=== PATIENT | male | born 1925 | race Caucasian/White ===

== ENCOUNTER 2016-12-15 11:49 | Inpatient (IN) | payer MEDICARE, MEDICAID ==
[2016-12-15 12:39] LABS: Bilirubin Negative (Negative); Blood, Urine Large (Negative); Glucose, Urine (Dipstick) Negative (Negative); Ketone, Urine Trace mg/dL (Negative); Protein, Urine (Dipstick) > or equal to 300 mg/dL (Neg-Trace)
[2016-12-15 12:40] LABS: Nitrite Negative (Negative)
[2016-12-15 12:58] LABS: Bacteria/HPF 4+ HPF (None Seen); Hyaline Casts/LPF NONE SEEN LPF (0-3 Hyaline); Yeast-All Forms 1+ HPF (None Seen)
[2016-12-15] MEDS ORDERED: Labetalol HCl 100 MG/20 ML VIAL ONE (13:06)
[2016-12-15 13:09] LABS: #Lymphocytes 0.9 thou/uL (1.20-3.40); #Monocytes 0.4 thou/uL (0.11-0.59); #Neutrophils 5.2 thou/uL (1.40-6.50); %Basophils 0.2 % (0.0-1.0); %Eosinophils 0.6 % (0.0-10.0); %Lymphocytes 13.3 % (21.0-51.0); %Monocytes 5.6 % (0.0-10.0); Hematocrit 34.3 % (42.0-52.0); Mean Platelet Volume 7.8 fL (7.4-10.4); Red Blood Cell (RBC) Count 3.42 mill/uL (4.70-6.10); White Blood Cell (WBC) Count 6.5 thou/uL (4.8-10.8)
[2016-12-15 13:17] LABS: PTT 40.5 SEC (22.9-36.1); Prothrombin Time 18.1 SEC (12.0-14.7)
[2016-12-15 13:33] LABS: ALT (SGPT) 11 U/L (8-55); AST (SGOT) 19 U/L (5-34); Alkaline Phosphatase 101 U/L (40-150); Anion Gap 13 mmol/L (10-20); BUN (Urea Nitrogen) 22 mg/dL (8.4-25.7); Bilirubin, Total 0.9 mg/dL (0.2-1.2); CK (CPK) 23 U/L (30-200); Calc. Creatinine Clearance 0 mL/min (70-130); Calcium 8.5 mg/dL (7.8-10.44); Carbon Dioxide 31 mmol/L (23-31); Chloride 104 mmol/L (98-107); Estimated GFR-MDRD 87; Protein, Total 6.8 g/dL (5.8-8.1)
[2016-12-15 13:36] LABS: Troponin I 0.021 ng/mL (< 0.028)
--- NOTE | 2016-12-15 14:29 | CT ---
CT BRAIN HISTORY: An 89-year-old with history of left-sided weakness. [id number] CT images of the brain obtained. FINDINGS: CT images demonstrate cortical atrophy. No evidence of acute intracranial masses, hemorrhages, stro kes, or contusions seen. IMPRESSION: Cortical atrophy. Otherwise unremarkable CT brain. POS: KEILA
--- NOTE | 2016-12-15 14:46 | RAD ---
PORTABLE AP CHEST X-RAY 12/15/2016 HISTORY: Left-sided facial droop and left-sided weakness. The patient on Eliquis. Chest pain. COMPARISON: 06/18/2008. FINDINGS: A dual-lead left subclavian cardiac pacemaking device is noted in place. There is a moderately larg e right pleural effusion and associated atelectasis. There are increased interstitial densities at the left lung base which could be related to atelectasis, although infectious process is a possibili ty. Right cardiac border is obscured. Vascular calcifications seen at the thoracic aorta. No othe r interval change. IMPRESSION: 1. Moderately large right pleural effusion and passive atelectasis. 2. Increased interstitial densities left lung base which may be related to either atelectasis or dev eloping area of pneumonitis. Follow-up chest x-ray is recommended. POS: ELISABETH
[2016-12-15] MEDS ORDERED: Furosemide 40 MG/4 ML VIAL ONE (14:53)
[2016-12-15] MEDS ORDERED: Potassium Chloride 20 MEQ TAB ONE ×2 (14:53→14:54)
[2016-12-15] MEDS ORDERED: Potassium Chloride 20 MEQ/100 ML PREMIX BAG ONE (14:53)
[2016-12-15] MEDS ORDERED: Aspirin 325 MG TAB ONE (14:53)
[2016-12-15 16:28] LABS: Troponin I 0.019 ng/mL (< 0.028)
--- NOTE | 2016-12-15 16:45 | HP ---
PRIMARY CARE PHYSICIAN: Ian Howard M.D. in [place]. REASON FOR ADMISSION: CVA, CHF, UTI, and encephalopathy. HISTORY OF PRESENT ILLNESS: An 89-year-old male, who has multiple medical problems including atrial fibrillation with sick sinus syndrome with pacemaker on chronic anticoagulation therapy, who lives at [facility]. Last Saturday, patient required an emergency room visit because he was having hematuria. He was given antibiotic therapy with levofloxacin; and after that, the patient w as not doing well. He was altered and confused. He was not up to his baseline. As per patient's d aughter, patient is pretty much active and more coherent, but for the last two weeks, he is confused . This morning, the patient and staff noticed facial droop and left-sided weakness and that is why they sent him to the emergency room again today for further evaluation. The patient's daughter reports that last week he was having increasing cough and increasing shortnes s of breath. She also noticed edema over his ankle. The patient's daughter also noticed that for t he last one week he is declining. He is not sure about fever, but at the skilled nursing, he did not h ave any fever, but for the last 2 days, the patient's temperature was dropping at skilled nursing and h e was also having cough, productive of sputum. Today in the emergency room, patient had CT brain which is negative for any acute intracranial proce ss. It showed cortical atrophy and chest x-ray showed moderate to large right pleural effusion with atelectasis and increased interstitial lung changes in left lung base which was worrisome for pneum onia. The patient's urinalysis was also consistent with urinary tract infection. His BNP was eleva margot and his potassium was low. At this point, the patient is not able to provide a more detailed history and patient's daughter onl y able to provide this much history; because, he does not have any more detail. We spoke with [facility] and the history obtained from them as well. REVIEW OF SYSTEMS: Please see my HPI for pertinent positives and negatives. All other review of sy stems reviewed and negative except as mentioned in the HPI. Review of systems is limited because of patient's current level of mental status. Constitutional: Weight loss or gain, ability to conduct usual activities. Skin: Rash, itching. Eyes: Double vision, pain. ENT/Mouth: Nose bleeding, neck stiffness, pain, tenderness. Cardiovascular: Palpitations, dyspnea on exertion, orthopnea. Respiratory: Shortness of breath, wheezing, cough, hemoptysis, fever or night sweats. Gastrointestinal: Poor appetite, abdominal pain, heartburn, nausea, vomiting, constipation, or diarrhea. Genitourinary: Urgency, frequency, dysuria, nocturia. Musculoskeletal: Pain, swelling. Neurologic/Psychiatric: Anxiety, depression. Allergy/Immunologic: Skin rash, bleeding tendency. PAST MEDICAL HISTORY: History of atrial fibrillation and required pacemaker, chronic anticoagulatio n with Eliquis, Alzheimer's dementia, history of CVA, hypothyroidism, hypertension. PAST SURGICAL HISTORY: Colon surgery x2, suprapubic catheter, neck surgery, and permanent pacemaker placement. PAST PSYCHIATRIC HISTORY: Anxiety and depression. SOCIAL HISTORY: Patient lives at skilled nursing. No history of tobacco, alcohol or illicit drug abus e. FAMILY HISTORY: No strong family history of premature coronary artery disease, stroke or cancer. ALLERGIES: No known drug allergies. CURRENT HOME MEDICATIONS: Eliquis 2.5 mg twice daily, gabapentin 300 mg p.o. at bedtime, Remeron 15 mg p.o. daily. EMERGENCY ROOM COURSE: Patient is getting potassium chloride 20 mEq IV, potassium chloride 40 mEq p .o. one time ordered, Lasix 40 mg ordered, aspirin 325 mg ordered and labetalol 20 mg IV push given. FAMILY HISTORY: No strong family history of premature coronary artery disease, stroke or cancer. PHYSICAL EXAMINATION: VITAL SIGNS: On arrival, blood pressure 184/120, pulse 73, respiratory rate 19, temperature 97.8, s aturation 95% on room air, weight 90.7 kilograms. GENERAL: Patient is week afebrile, nontoxic. HEAD: Normocephalic, atraumatic. EYES: Pupils round, reactive to light. Extraocular muscles intact. ENT: Oropharynx within normal limits. Moist mucous membranes. No oral lesions. No pharyngeal bella thema. No exudate. NECK: Supple. Range of motion is normal. No meningeal signs of irritation. No JVD. No thyromega ly. No carotid bruits. LUNGS: Bibasilar rales noted. Air entry reduced on the right side. CARDIAC: S1, S2 appears irregular. No murmur. No gallop. No rub. ABDOMEN: Soft, bowel sounds present, nontender, nondistended. No organomegaly, no mass. Suprapubi c catheter in place. EXTREMITIES: Trace bilateral lower extremity edema more around ankles and feet. Good distal pulsat ion. Upper extremity passive movements of all joints are normal. SKIN: No skin rash. PSYCHIATRIC: Normal affect. HEMATOLOGICAL SYSTEM: No lymphadenopathy. NEUROLOGIC: The patient is currently alert, awake, arousable, follows commands. Speech normal; le ft-sided mild facial droop noted. The patient does have mild left-sided weakness, but per patient's family member that is chronic from previous stroke. Plantar bilateral flexor. Reflexes bilaterall y symmetrical. SIGNIFICANT LABS AND IMAGINGS: EKG showing atrial fibrillation with controlled ventricular response . CT brain showing cortical atrophy, no acute intracranial process. Chest x-ray based on my review , moderate to large right pleural effusion with passive atelectasis, left base infiltration. CBC: WBC 6.5, hemoglobin 10.7, MCV 100, platelets 175,000 INR 1.5. BMP: Sodium 145, potassium 2.9, chl oride 104, carbon dioxide 31, BUN 22, creatinine 0.83, glucose 93, calcium 8.5. LFT: AST 19, ALT 11, alkaline phosphatase 101, albumin 2.8. BNP 475.9, CK-MB 2.1, troponin I 0.02 1. Urinalysis suggestive of UTI, proteinuria, hematuria. ASSESSMENT AND PLAN: 1. Acute cerebrovascular accident, suspected. This patient was found with a more left-sided weakne ss and left-sided facial droop. At this point, CT brain is not showing any acute process. The derek ent is not able to get MRI because of his permanent pacemaker. We will obtain carotid ultrasound an d echocardiography as a part of stroke workup. We will consult PT, OT and speech therapy while in h ospital. We will continue with aspirin 81 mg p.o. daily. Patient is already on chronic anticoagula tion therapy with Eliquis 2.5 mg p.o. twice daily, which we will continue while in hospital. 2. Congestive heart failure likely acute on chronic diastolic heart failure. We will obtain echoca rdiography. We will treat with Lasix 20 mg IV b.i.d. We will monitor daily weight, input and outpu t chart. 3. Moderate to large right pleural effusion likely due to problem #2 secondary to acute on chronic diastolic heart failure. Patient will need diuresis and will repeat chest x-ray before discharge. 4. Left lower lobe skilled nursing acquired pneumonia. This patient was on antibiotic therapy with Le vaquin, which he did not tolerate it well. At this point, we will continue with cefepime 2 g q.12 h ourly along with vancomycin and we will repeat follow up chest x-ray after a couple of days, DuoNeb therapy q. 6 hourly p.r.n., Mucinex 600 mg twice daily. 5. Urinary tract infection. Patient's has suprapubic catheter and his urinalysis will be abnormal all the time. Doubt this patient has any real invasive urinary tract infection, but needs to be exc luded. At this point, the patient will be kept on cefepime and vancomycin and will follow up on uri ne culture as well. 6. Macrocytic anemia, will consider adding folic acid, vitamin B12 on his regimen. 7. Atrial fibrillation with controlled ventricular response with pacemaker, on chronic anticoagulat ion therapy with Eliquis 2.5 mg p.o. b.i.d., which we will continue while in hospital. 8. Hypokalemia. The patient has received potassium supplementation in the emergency room. We will repeat BMP tomorrow. We will also check magnesium to rule out any hypomagnesemia. 9. Encephalopathy likely due to multiple factorial etiologies including infection, CVA. We will mo nitor on the stroke floor. 10. Alzheimer's dementia. Patient will need supportive care. 11. Obstructive uropathy secondary to benign enlargement of prostate with suprapubic catheter in pl [place]. 12. Anxiety and depression. We will continue Remeron 15 mg p.o. at bedtime. 13. Deep venous thrombosis prophylaxis. No need of Lovenox because patient is already on Eliquis t herapy. 4. Gastrointestinal prophylaxis., Protonix 40 mg p.o. daily. CODE STATUS: I spoke with the patient's daughter who is present at bedside in the emergency room an d confirmed his DNR status at skilled nursing as well as while in hospital. They do not want any kind of resuscitation to be done in case of cardiopulmonary arrest. We are expecting patient's stay in hospital more than 2 midnights. Plan of care discussed with the patient and family member at bedside in the emergency room.
[2016-12-15] MEDS ORDERED: Mag-Al 1200 mg/1200 mg/30 ML UDCUP PO PRN (18:03)
[2016-12-15] MEDS ORDERED: Ondansetron HCl/PF 4 MG/2 ML Vial IVP PRN (18:03)
[2016-12-15] MEDS ORDERED: Diabetic Tussin 200 MG/10 ML UDCUP PO PRN (18:03)
[2016-12-15] MEDS ORDERED: Eucerin (Mineral Oil/Petrolatum,White) 30 gm Jar TOP PRN (18:03)
[2016-12-15] MEDS ORDERED: Sodium Chloride 0.65% Nasal 44 ML BOT EA NARE PRN (18:03)
[2016-12-15] MEDS ORDERED: Loperamide HCl 2 MG CAP PO PRN (18:03)
[2016-12-15] MEDS ORDERED: Artificial Tears 18 DROP/0.9 ML EA EYE PRN (18:03)
[2016-12-15] MEDS ORDERED: Loratadine 10 MG TAB PO PRN (18:03)
[2016-12-15] MEDS ORDERED: Acetaminophen 325 MG TAB PO PRN (18:03)
[2016-12-15] MEDS ORDERED: Ondansetron ODT 4 MG TAB PO PRN (18:03)
[2016-12-15] MEDS ORDERED: Senokot 8.6 MG TAB PO PRN (18:03)
[2016-12-15] MEDS ORDERED: Milk Of Magnesia 30 ML UDCUP PO PRN (18:03)
[2016-12-15] MEDS ORDERED: Nitroglycerin 0.4 MG TAB (25 Tab Bottle) SL PRN (18:03)
[2016-12-15 18:56] LABS: Troponin I 0.026 ng/mL (< 0.028)
[2016-12-15] MEDS: Apixaban 5 MG TAB PO SCH (20:32)
[2016-12-15] MEDS: Cefepime 2 GM in Sodium Chloride 0.9% 100 ML IVPB SCH (20:32)
[2016-12-15] MEDS: guaiFENesin ER 600 MG TAB PO SCH (20:33)
[2016-12-15] MEDS: Gabapentin 300 MG CAP PO SCH (20:33)
[2016-12-15] MEDS: Atorvastatin Calcium 10 MG TAB PO SCH (20:33)
[2016-12-15] MEDS: Mirtazapine 15 MG TAB PO SCH (20:33)
[2016-12-15] MEDS: Carvedilol 6.25 MG TAB PO SCH (20:33)
--- NOTE | 2016-12-15 20:48 | ULT ---
CAROTID DUPLEX ULTRASOUND: 12/15/16 INDICATION: CVA. FINDINGS: There is stable atherosclerotic plaque involving the right ICA and carotid bulb similar to a compari son dated 04/06/13. Mild atherosclerotic plaque involving the distal left common carotid and left int ernal carotid artery is again noted. Peak systolic velocity in the right CCA was 72.8 cm/s and left CCA was 52.0 cm. Peak systolic velocity in the right ICA was 67.6 cm/s and left was 51.9 cm/s. The right IC/CC ratio is 0.79 and left is 1.0. Antegrade flow is seen to both vertebral arteries. IMPRESSION: No hemodynamically significant stenosis. POS: KEILA
[2016-12-15 21:47] LABS: Troponin I 0.016 ng/mL (< 0.028)
[2016-12-15] MEDS: Vancomycin HCl 1 GM in Premix Bag 1 BAG IVPB SCH (22:30)
[2016-12-16] MEDS: Furosemide 20 MG/2 ML VIAL SLOW IVP SCH ×2 (05:48→14:40)
[2016-12-16 05:52] LABS: #Lymphocytes 0.7 thou/uL (1.20-3.40); #Monocytes 0.5 thou/uL (0.11-0.59); #Neutrophils 5.2 thou/uL (1.40-6.50); %Basophils 0.3 % (0.0-1.0); %Eosinophils 0.8 % (0.0-10.0); %Lymphocytes 11.2 % (21.0-51.0); %Monocytes 7.9 % (0.0-10.0); Hematocrit 33.2 % (42.0-52.0); Mean Platelet Volume 7.9 fL (7.4-10.4); Red Blood Cell (RBC) Count 3.31 mill/uL (4.70-6.10); White Blood Cell (WBC) Count 6.5 thou/uL (4.8-10.8)
[2016-12-16 06:04] LABS: ALT (SGPT) 11 U/L (8-55); AST (SGOT) 17 U/L (5-34); Alkaline Phosphatase 95 U/L (40-150); Anion Gap 11 mmol/L (10-20); BUN (Urea Nitrogen) 22 mg/dL (8.4-25.7); Bilirubin, Total 0.8 mg/dL (0.2-1.2); Calc. Creatinine Clearance 62 mL/min (70-130); Calcium 8.4 mg/dL (7.8-10.44); Carbon Dioxide 34 mmol/L (23-31); Chloride 103 mmol/L (98-107); Cholesterol 116 mg/dl (< 200 Desired); Estimated GFR-MDRD 75; Globulin 3.9 g/dL (2.4-3.5); LDL Cholesterol, Calculated 73 mg/dL; Magnesium 1.8 mg/dL (1.6-2.6); Protein, Total 6.6 g/dL (5.8-8.1); Uric Acid 4.9 mg/dL (3.5-7.2)
[2016-12-16] MEDS: Cefepime 2 GM in Sodium Chloride 0.9% 100 ML IVPB SCH ×2 (08:11→19:56)
[2016-12-16] MEDS: Saccharomyces boulardii 250 MG CAP PO SCH (08:18)
[2016-12-16] MEDS: Apixaban 5 MG TAB PO SCH ×2 (08:18→20:03)
[2016-12-16] MEDS: Carvedilol 6.25 MG TAB PO SCH ×2 (08:18→20:04)
[2016-12-16] MEDS: Cyanocobalamin (Vitamin B-12) 1,000 MCG TAB PO SCH (08:18)
[2016-12-16] MEDS: Aspirin 81 mg Enteric Coated Tablet PO SCH (08:18)
[2016-12-16] MEDS: Folic Acid 1 MG TAB PO SCH (08:18)
[2016-12-16] MEDS: guaiFENesin ER 600 MG TAB PO SCH ×2 (08:19→20:04)
[2016-12-16] MEDS: Lisinopril 5 MG TAB PO SCH (08:19)
--- NOTE | 2016-12-16 09:38 | PDOC.PN ---
- Subjective Encounter Start Date: 12/16/16 Encounter Start Time: 07:20 Pt seen for suspected CVA. Speaking, but speech incoherent. Unable to complete ROS. - Objective Resuscitation Status: Resuscitation Status DNR:Do Not Resuscitate MAR Reviewed: Yes Vital Signs & Weight: Vital Signs (12 hours) Temp Pulse Resp BP Pulse Ox 12/16/16 08:19 58 L 12/16/16 08:00 98.2 F 61 16 200/101 H 97 12/16/16 04:00 97.5 F L 58 L 20 161/101 H 93 L 12/15/16 23:15 97.4 F L 63 18 179/101 H 94 L 12/15/16 22:34 97 Weight Weight 182 lb 14.4 oz I&O: 12/15/16 12/16/16 12/17/16 06:59 06:59 06:59 Intake Total 640 Output Total 1550 Balance -910 Result Diagrams: 12/16/16 05:16 12/16/16 05:16 Additional Labs: Accuchecks 12/15/16 20:36 POC Glucose 109 EKG Reviewed by me: Yes (tele: electronic V-paced rhythm) Phys Exam - Physical Examination Constitutional: NAD HEENT: moist MMs, oral pharynx no lesions Neck: supple Respiratory: no wheezing, no rales, no rhonchi, clear to auscultation bilateral Cardiovascular: RRR, no rub Gastrointestinal: soft, positive bowel sounds Musculoskeletal: pulses present Power 4+/5 LUE and LLE, 5/5 RUE and RLE Psychiatric: normal affect Deviation from normal: Unable to assess orientation to person, place or time Skin: no rash Dx/Plan (1) Idiopathic ischemic cerebrovascular accident (CVA) in adult Code(s): I63.9 - CEREBRAL INFARCTION, UNSPECIFIED Status: Suspected (2) MCC-acquired pneumonia Code(s): J18.9 - PNEUMONIA, UNSPECIFIED ORGANISM Status: Acute (3) Encephalopathy Code(s): G93.40 - ENCEPHALOPATHY, UNSPECIFIED Status: Acute (4) Chronic atrial fibrillation Code(s): I48.2 - CHRONIC ATRIAL FIBRILLATION Status: Chronic (5) Alzheimer's dementia Code(s): G30.9 - ALZHEIMER'S DISEASE, UNSPECIFIED Status: Chronic (6) Chronic diastolic (congestive) heart failure Code(s): I50.32 - CHRONIC DIASTOLIC (CONGESTIVE) HEART FAILURE Status: Chronic - Plan continue antibiotics, PT/OT * . Continue apixaban and statin. Aspirin has also been started. Continue IV cefepime, IV vancomycin. Interrogate pacemaker for ? arrhythmias. Await stroke workup. Review of Systems - Medications/Allergies Allergies/Adverse Reactions: Allergies Allergy/AdvReac Type Severity Reaction Status Date / Time allopurinol Allergy Intermediate Hives Verified 12/15/16 22:13 milk Allergy Verified 12/15/16 22:13 Medications: Current Medications Acetaminophen (Tylenol) 650 mg PO Q4H PRN PRN Reason: Headache/Fever or Pain Al Hydroxide/Mg Hydroxide (Maalox) 30 ml PO Q6H PRN PRN Reason: Heartburn or Indigestion Albuterol/Ipratropium (Duoneb) 3 ml NEB [id number] PRN PRN Reason: SOB &/or Wheezing Apixaban (Eliquis) 2.5 mg PO BID [facility] Last Admin: 12/16/16 08:18 Dose: 2.5 mg Artificial Tears (Tears Naturale) 0 drop EA EYE PRN PRN PRN Reason: Dry Eyes Aspirin (Ecotrin) 81 mg PO DAILY [facility] Last Admin: 12/16/16 08:18 Dose: 81 mg Atorvastatin Calcium (Lipitor) 10 mg PO HS [facility] Last Admin: 12/15/16 20:33 Dose: 10 mg Carvedilol (Coreg) 6.25 mg PO BID [facility] Last Admin: 12/16/16 08:18 Dose: 6.25 mg Cyanocobalamin (Vitamin B-12) 1,000 mcg PO DAILY [facility] Last Admin: 12/16/16 08:18 Dose: 1,000 mcg Folic Acid (Folvite) 1 mg PO DAILY [facility] Last Admin: 12/16/16 08:18 Dose: 1 mg Furosemide (Lasix) 20 mg SLOW IVP 0600,1400 [facility] Last Admin: 12/16/16 05:48 Dose: 20 mg Gabapentin (Neurontin) 300 mg PO HS [facility] Last Admin: 12/15/16 20:33 Dose: 300 mg Guaifenesin (Robitussin Sf) 200 mg PO Q4H PRN PRN Reason: Cough Guaifenesin (Mucinex) 600 mg PO Q12HR [facility] Last Admin: 12/16/16 08:19 Dose: 600 mg Hydralazine HCl (Apresoline) 10 mg SLOW IVP Q4H PRN PRN Reason: Systolic BP > 180 Cefepime HCl 2 gm/ Sodium (Chloride) 100 mls @ 200 mls/hr IVPB Q12HR [facility] Last Admin: 12/16/16 08:11 Dose: 100 mls Vancomycin HCl 1 gm/ Device 200 mls @ 200 mls/hr IVPB 1000,2200 [facility] Last Admin: 12/15/16 22:30 Dose: 200 mls Lisinopril (Zestril) 5 mg PO DAILY [facility] Last Admin: 12/16/16 08:19 Dose: 5 mg Loperamide HCl (Imodium) 2 mg PO PRN PRN PRN Reason: Diarrhea/Loose Stools Loratadine (Claritin) 10 mg PO DAILYPRN PRN PRN Reason: Sinus Symptoms Magnesium Hydroxide (Milk Of Magnesium) 30 ml PO DAILYPRN PRN PRN Reason: Constipation Mineral Oil/White Petrolatum (Eucerin Cream) 0 gm TOP BIDPRN PRN PRN Reason: Dry Skin Mirtazapine (Remeron) 15 mg PO [facility] Last Admin: 12/15/16 20:33 Dose: 15 mg Miscellaneous Medication (Pharmacy To Dose) 1 each IVPB PRN PRN PRN Reason: Pharmacy to dose Nitroglycerin (Nitrostat) 0.4 mg SL Q5MIN PRN PRN Reason: Chest Pain Ondansetron HCl (Zofran Odt) 4 mg PO Q6H PRN PRN Reason: Nausea/Vomiting Ondansetron HCl (Zofran) 4 mg IVP Q6H PRN PRN Reason: Nausea/Vomiting Saccharomyces Boulardii (Florastor) 250 mg PO DAILY [facility] Last Admin: 12/16/16 08:18 Dose: 250 mg Senna (Senokot) 2 tab PO HSPRN PRN PRN Reason: Constipation Sodium Chloride (Flush - Normal Saline) 10 ml IVF PRN PRN PRN Reason: Saline Flush Sodium Chloride (Comfrey Nasal [place] 0.65%) 0 ml EA NARE QIDPRN PRN PRN Reason: Nasal Congestion Sodium Chloride (Flush - Normal Saline) 10 ml IVF Q12HR [facility] Last Admin: 12/15/16 20:32 Dose: 10 ml
[2016-12-16] MEDS: Vancomycin HCl 1 GM in Premix Bag 1 BAG IVPB SCH ×2 (10:17→20:48)
[2016-12-16 12:49] LABS: BF Reference Range Comment Note:
[2016-12-16 14:02] LABS: BF Color Yellow; BF WBC/Nonhematics Ct. - Manua 85 /cumm
[2016-12-16 15:08] LABS: Number Cells Counted-Fluids 100
--- NOTE | 2016-12-16 15:32 | RAD ---
AP CHEST: History: Status post thoracentesis. Date: 12-16-16 Comparison: 12-15-16 FINDINGS: Cardiomegaly. A dual-lead intracardiac pacing device is seen. There is reduction in volume of the ri ght sided pleural effusion compatible with a recent thoracentesis. No evidence of post procedure pne umothorax seen. The left lung is well aerated. IMPRESSION: Status post right sided thoracentesis. POS: KEILA
[2016-12-16] MEDS ORDERED: Haloperidol Lactate 5 MG/ML VIAL IM SCH (16:45)
--- NOTE | 2016-12-16 17:12 | PDOC.EVN ---
Event Note - Event Note Event Note: Pt seen re; agitation. Agitated, trying to climb out of bed. VSS. S1, S2, RRR. Lungs CTA Started PRN Haldol.
[2016-12-16] MEDS ORDERED: Acetaminophen 325 MG TAB PO PRN (17:19)
[2016-12-16] MEDS ORDERED: Sterile Water 10 ML ONE ×2 (17:22→22:39)
[2016-12-16] MEDS: Ziprasidone 20 MG VIAL IM PRN ×2 (17:29→22:43)
--- NOTE | 2016-12-16 19:22 | CON ---
DATE OF CONSULTATION: 12/16/2016 REFERRING PHYSICIAN: Hospitalist Service IMPRESSION: Delirium secondary to pulmonary effusion and sleep deprivation. PLAN: 1. Seroquel 50 mg at bedtime. 2. Monitor clinical course. HISTORY OF PRESENT ILLNESS: Ms. 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 He has been a wheelchair-bound. He has been hospitalized on several occasions with urosepsis. His neal ter reports that over the last week, he has not been sleeping and getting more and more agitated a nd delirious. He was found to have pulmonary effusion and had to strain today. This is the first t maria victoria this has ever happened. He is followed by Cardiology and also has a pacemaker. He has had a CT scan of the brain since admission, which was unremarkable. His laboratory studies were unremarkabl e as well for any metabolic disturbance. Urinalysis is suspicious for ongoing infection, but he has not run any fever since admission. PAST MEDICAL HISTORY: As noted above. ALLERGIES: ALLOPURINOL and MILK. SOCIAL HISTORY: He is a correction resident. He does not smoke or drink. FAMILY HISTORY: Noncontributory. REVIEW OF SYSTEMS: The patient reports some mild chest pain. PHYSICAL EXAMINATION: GENERAL: He is a healthy appearing elderly gentleman, who is lying in bed and relatively quiet. VITAL SIGNS: Blood pressure 188/113, pulse 60, respirations 14, temperature 97.4. HEENT: Pupils are equal and reactive. Conjunctivae clear. Mucous membranes are bit dry. NECK: No lymphadenopathy noted. EXTREMITIES: No cyanosis noted. NEUROLOGIC: He would respond verbally and follow few simple commands, although he was not overly co operative. His speech is fluent and clear. His face appeared to be symmetric. Eye movements were intact. He had symmetric highway engineer strength. His tone was increased a bit in the legs. Plantar respons es were upgoing bilaterally. No abnormal movements were seen. LABORATORY STUDIES AND IMAGING: Reviewed. SUMMARY: This is an elderly man who has had a disruption of his sleep cycle over the last week with increasing delirium. Hopefully, this can be reversed with any psychotic. Do not see any other tox ic or metabolic factors. Urinary tract infection may be a contributing factor as well.
[2016-12-16] MEDS: Atorvastatin Calcium 10 MG TAB PO SCH (20:03)
[2016-12-16] MEDS: Gabapentin 300 MG CAP PO SCH (20:04)
[2016-12-16] MEDS: Mirtazapine 15 MG TAB PO SCH (20:04)
--- NOTE | 2016-12-16 20:15 | OP ---
PROCEDURE: Thoracentesis. INDICATIONS: Pleural effusion. PROCEDURE IN DETAIL: After informed consent with the daughter, the patient was sitting upright in b ed with the help of 2 nurses, 1% Xylocaine was infiltrated into the right ninth intercostal space in the midscapular line and the pleural cavity was entered, and about 20 mL of relatively clear fluid was removed, which appeared to be transudate. Thereafter, an 8-[place] catheter was inserted and a t otal of 1800 mL was removed without difficulty. Fluid was sent for appropriate studies including cy tology and culture. Patient tolerated the procedure well.
--- NOTE | 2016-12-16 20:30 | CON ---
DATE OF CONSULTATION: 12/16/2016 SUBJECTIVE: Michael Mejias is an 89-year-old gentleman who, according to his daughter who is at the bedside, went to the [place] ER about a couple of weeks ago with a problem with the suprapubic darrel ter. They apparently changed the catheter, but nothing additionally was done at that time. Now noticed that he was having some facial weakness and drooping for which he was taken again to [facility] and eventually landed to [facility]. Mr. Mejias denies any chest pain, shortness of breath, coughing or wheezing. PAST MEDICAL HISTORY: Coronary artery disease, previous NH, pacemaker in 1999, previous atrial fibr illation, on long-term Coumadin. PAST SURGICAL HISTORY: Include multiple cholecystectomy, pacemaker, lap for colon resection. MEDICATIONS: His list of medicine from the long-term has included Eliquis 2.5, melatonin, mirtaz apine 15, Synthroid 125, , Zoloft 50, pravastatin. ALLERGIES: ALLOPURINOL. REVIEW OF SYSTEMS: Otherwise unremarkable. PHYSICAL EXAMINATION: GENERAL: Elderly gentleman who appears to be in mild distress. VITAL SIGNS: Pulse 80, blood pressure 130/80, respirations 18. CHEST: Reveals decreased breath sounds in entire right lung. Left lung unremarkable. CARDIAC: Normal S1, S2. No gallops. ABDOMEN: Soft, no masses. IMPRESSION: 1. Left-sided weakness. 2. Transient ischemic attack. Initial CT of the brain was negative. Chest x-ray shows massive ple ural effusion on the right side, which is presumably new according to his daughter. 3. History of congestive heart failure. 4. Atrial fibrillation. 5. Dementia. PLAN: A thoracentesis will be done for comfort measures. Otherwise, continue present antibiotics, deescalate once cultures are back.
[2016-12-16] MEDS ORDERED: Haloperidol Lactate 5 MG/ML VIAL IM PRN (22:30)
[2016-12-17] MEDS: Furosemide 20 MG/2 ML VIAL SLOW IVP SCH ×2 (05:53→13:34)
[2016-12-17 09:38] LABS: Vancomycin, Trough 20.7 ug/mL
[2016-12-17] MEDS: Lisinopril 5 MG TAB PO SCH (09:57)
[2016-12-17] MEDS: Folic Acid 1 MG TAB PO SCH (09:57)
[2016-12-17] MEDS: guaiFENesin ER 600 MG TAB PO SCH ×2 (09:57→20:43)
[2016-12-17] MEDS: Cyanocobalamin (Vitamin B-12) 1,000 MCG TAB PO SCH (09:57)
[2016-12-17] MEDS: Carvedilol 6.25 MG TAB PO SCH ×2 (09:57→20:43)
[2016-12-17] MEDS: Aspirin 81 mg Enteric Coated Tablet PO SCH (09:57)
[2016-12-17] MEDS: Apixaban 5 MG TAB PO SCH ×2 (09:57→20:42)
[2016-12-17] MEDS: Saccharomyces boulardii 250 MG CAP PO SCH (09:58)
--- NOTE | 2016-12-17 10:07 | PDOC.PN ---
- Subjective Encounter Start Date: 12/17/16 Encounter Start Time: 07:20 Pt seen for followup re: encephalopathy. Lethargic, unable to provide history or ROS. - Objective Resuscitation Status: Resuscitation Status DNR:Do Not Resuscitate MAR Reviewed: Yes Vital Signs & Weight: Vital Signs (12 hours) Temp Pulse Resp BP Pulse Ox 12/17/16 09:57 77 12/17/16 04:16 96.3 F L 77 16 160/78 H 94 L 12/17/16 03:29 95 12/16/16 23:59 96.1 F L 72 16 160/80 H 95 Weight Weight 166 lb 11.2 oz I&O: 12/16/16 12/17/16 12/18/16 06:59 06:59 06:59 Intake Total 640 450 Output Total 1550 5150 Balance -910 -4700 Result Diagrams: 12/16/16 05:16 12/16/16 05:16 EKG Reviewed by me: Yes (Tele: electronic V-paced rhythm) Dx/Plan (1) Encephalopathy Code(s): G93.40 - ENCEPHALOPATHY, UNSPECIFIED Status: Acute (2) Infection due to ESBL-producing Klebsiella pneumoniae Code(s): A49.8 - OTHER BACTERIAL INFECTIONS OF UNSPECIFIED SITE; Z16.12 - EXTENDED SPECTRUM BETA LACTAMASE (ESBL) RESISTANCE Status: Acute Comment: UTI (3) custodial-acquired pneumonia Code(s): J18.9 - PNEUMONIA, UNSPECIFIED ORGANISM Status: Acute (4) Chronic atrial fibrillation Code(s): I48.2 - CHRONIC ATRIAL FIBRILLATION Status: Chronic (5) Alzheimer's dementia Code(s): G30.9 - ALZHEIMER'S DISEASE, UNSPECIFIED Status: Chronic (6) Chronic diastolic (congestive) heart failure Code(s): I50.32 - CHRONIC DIASTOLIC (CONGESTIVE) HEART FAILURE Status: Chronic - Plan continue antibiotics, DVT proph w/SCDs * . Discontinue cefepime, start meropenem (ESBL+ Klebsiella pneumoniae in urine cultures). Unsure re: urinary tract infection vs. catheter colonization, consult ID. Appreciate pulmonology input, s/p thoracentesis. Appreciate neurology service input re; delirium. Review of Systems - Medications/Allergies Allergies/Adverse Reactions: Allergies Allergy/AdvReac Type Severity Reaction Status Date / Time allopurinol Allergy Intermediate Hives Verified 12/15/16 22:13 milk Allergy Verified 12/15/16 22:13 Medications: Current Medications Acetaminophen (Tylenol) 650 mg PO Q4H PRN PRN Reason: Headache/Fever or Pain Al Hydroxide/Mg Hydroxide (Maalox) 30 ml PO Q6H PRN PRN Reason: Heartburn or Indigestion Albuterol/Ipratropium (Duoneb) 3 ml NEB [id number] PRN PRN Reason: SOB &/or Wheezing Apixaban (Eliquis) 2.5 mg PO BID [facility] Last Admin: 12/17/16 09:57 Dose: Not Given Artificial Tears (Tears Naturale) 0 drop EA EYE PRN PRN PRN Reason: Dry Eyes Aspirin (Ecotrin) 81 mg PO DAILY [facility] Last Admin: 12/17/16 09:57 Dose: Not Given Atorvastatin Calcium (Lipitor) 10 mg PO HS [facility] Last Admin: 12/16/16 20:03 Dose: Not Given Carvedilol (Coreg) 6.25 mg PO BID [facility] Last Admin: 12/17/16 09:57 Dose: Not Given Cyanocobalamin (Vitamin B-12) 1,000 mcg PO DAILY [facility] Last Admin: 12/17/16 09:57 Dose: Not Given Folic Acid (Folvite) 1 mg PO DAILY [facility] Last Admin: 12/17/16 09:57 Dose: Not Given Furosemide (Lasix) 20 mg SLOW IVP 0600,1400 [facility] Last Admin: 12/17/16 05:53 Dose: 20 mg Gabapentin (Neurontin) 300 mg PO HS [facility] Last Admin: 12/16/16 20:04 Dose: Not Given Guaifenesin (Robitussin Sf) 200 mg PO Q4H PRN PRN Reason: Cough Guaifenesin (Mucinex) 600 mg PO Q12HR [facility] Last Admin: 12/17/16 09:57 Dose: Not Given Haloperidol Lactate (Haldol) 2 mg IM Q6H PRN PRN Reason: . Hydralazine HCl (Apresoline) 10 mg SLOW IVP Q4H PRN PRN Reason: Systolic BP > 180 Last Admin: 12/16/16 20:42 Dose: 10 mg Vancomycin HCl 1 gm/ Device 200 mls @ 200 mls/hr IVPB 1000,2200 [facility] Last Admin: 12/16/16 20:48 Dose: 200 mls Meropenem 1 gm/ Sodium (Chloride) 100 mls @ 200 mls/hr IVPB Q8HR [facility] Lisinopril (Zestril) 5 mg PO DAILY [facility] Last Admin: 12/17/16 09:57 Dose: Not Given Loperamide HCl (Imodium) 2 mg PO PRN PRN PRN Reason: Diarrhea/Loose Stools Loratadine (Claritin) 10 mg PO DAILYPRN PRN PRN Reason: Sinus Symptoms Magnesium Hydroxide (Milk Of Magnesium) 30 ml PO DAILYPRN PRN PRN Reason: Constipation Mineral Oil/White Petrolatum (Eucerin Cream) 0 gm TOP BIDPRN PRN PRN Reason: Dry Skin Mirtazapine (Remeron) 15 mg PO [facility] Last Admin: 12/16/16 20:04 Dose: Not Given Miscellaneous Medication (Pharmacy To Dose) 1 each IVPB PRN PRN PRN Reason: Pharmacy to dose Nitroglycerin (Nitrostat) 0.4 mg SL Q5MIN PRN PRN Reason: Chest Pain Ondansetron HCl (Zofran Odt) 4 mg PO Q6H PRN PRN Reason: Nausea/Vomiting Ondansetron HCl (Zofran) 4 mg IVP Q6H PRN PRN Reason: Nausea/Vomiting Saccharomyces Boulardii (Florastor) 250 mg PO DAILY [facility] Last Admin: 12/17/16 09:58 Dose: Not Given Senna (Senokot) 2 tab PO HSPRN PRN PRN Reason: Constipation Sodium Chloride (Flush - Normal Saline) 10 ml IVF PRN PRN PRN Reason: Saline Flush Last Admin: 12/17/16 05:53 Dose: 10 ml Sodium Chloride ([place] Nasal [place] 0.65%) 0 ml EA NARE QIDPRN PRN PRN Reason: Nasal Congestion Sodium Chloride (Flush - Normal Saline) 10 ml IVF Q12HR [facility] Last Admin: 12/17/16 09:58 Dose: Not Given Ziprasidone (Geodon) 10 mg IM Q6H PRN PRN Reason: Agitation Last Admin: 12/16/16 22:43 Dose: 10 mg
--- NOTE | 2016-12-17 10:35 | PRG ---
DATE OF SERVICE: 12/17/2016 SUBJECTIVE: Mr. Mejias is poorly responsive, in terms of speaking, appears to be breathing okay. PHYSICAL EXAMINATION: VITAL SIGNS: Temperature 96.3, pulse 77, respirations 16, O2 sat 94%, blood pressure 160/78. HEENT: Unremarkable. NECK: No JVD. LUNGS: Diminished breath sounds at the right base compared to left. CARDIAC: S1 and S2 regular. ABDOMEN: Soft. EXTREMITIES: No edema. Pleural fluid was transudative in nature. LABORATORY DATA: Sodium 145, potassium 3.4, chloride 103, CO2 34, BUN 22, creatinine 0.9, glucose 1 09. White blood cell count 6.5, hematocrit 33.2, platelet count 172. ASSESSMENT: 1. Transudative pleural effusion, likely secondary to congestive heart failure. 2. Status post thoracentesis for pleural effusion. 3. Atrial fibrillation. 4. Dementia. PLAN: Speech people are seeing the patient this morning. He is continuing antibiotic therapy -- no t quite sure what the indication is for that. Goal should be palliative in nature in my opinion.
[2016-12-17] MEDS: Vancomycin HCl 1 GM in Premix Bag 1 BAG IVPB SCH ×2 (12:11→20:42)
[2016-12-17] MEDS: Ziprasidone 20 MG VIAL IM PRN (13:43)
[2016-12-17] MEDS ORDERED: Meropenem 1 GM in Sodium Chloride 0.9% 100 ML IVPB SCH (14:00)
--- NOTE | 2016-12-17 19:57 | CON ---
DATE OF CONSULTATION: 12/17/2016 REASON FOR CONSULTATION: Evaluate results of urine culture significance. HISTORY OF PRESENT ILLNESS: An 89-year-old who has a history of prior CVA/TIA, AFib, sick sinus syn drome with pacemaker, who was admitted with history of confusional state. This was associated with left-sided weakness. This also presented with evidence of some respiratory symptoms including tachy pnea and cough. The patient had a CT of brain, which did not show any acute intracranial process ex cept for cortical atrophy and a chest x-ray with moderate to large right pleural effusion and atelec tases. The patient had thoracentesis and the pleural fluid total protein was 2.5 and the serum albu min 2.8 and 2.7. The patient has been continued on Eliquis and gabapentin. He was given meropenem and vancomycin. Microbiology with negative blood cultures thus far. Pleural fluid culture negative as well. Klebsiella pneumonia in urine was ESBL phenotype. Follow up chest x-ray on 12/16 with a dual intracardiac pacing device, reduction in volume of the right-sided pleural effusion without pne umothorax. Currently, Mr. Mejias has his eyes closed; he does not interact with examiner. He has a patterned repetitive flexion movement of the upper extremities. No spontaneous movements identified in the lower extremities. There has been no reported diarrhea, no bleeding. PAST MEDICAL HISTORY: Atrial fibrillation, prior cerebrovascular accident, hypothyroidism, chronic anticoagulation with Eliquis and hypertension. PAST SURGICAL HISTORY: Partial colectomy, suprapubic catheter placement, neck surgery and permanent pacemaker. SOCIAL HISTORY: Lives in a snf. Unknown history of smoking. FAMILY HISTORY: Noncontributory. ALLERGIES: None. MEDICATION LIST: Currently Maalox, DuoNeb, Eliquis, Coreg, Lasix, Neurontin, Mucinex, Haldol, Zestr il and meropenem. PHYSICAL EXAMINATION: VITAL SIGNS: Patient has been afebrile through the hospital stay. Blood pressure 150/78, pulse 73, respirations 20 and O2 sat 98%. GENERAL: Appears in no distress, although he does not interact with examiner. SKIN: Findings as a stage II pressure area in the perianal region and gluteal region. Peripheral I V access, Hoyt catheter and a suprapubic catheter with normal appearing exit site. No lymphadenopa thy. HEENT: Ocular movements are conjugate. No nystagmus. The patient has no [place] teeth. NECK: Supple. LUNGS: With symmetric clear breath sounds. HEART: S1 and S2 with regular rate. ABDOMEN: Soft and distended. No bladder distention, organomegaly or ascites. EXTREMITIES: No joint inflammatory activity. Pulses are 1+ in dorsalis pedis. The lower extremiti es are pre-flaccid. No reflexes are elicited. NEUROLOGIC: Plantar responses are indifferent. LABORATORY AND X-RAY FINDINGS: Sodium is 145, potassium is 3.4 and creatinine is 0.95. Liver profi le normal. White cell count 6.5, hemoglobin 10.6 and platelets 172. Urinalysis with 11-20 wbc's, p leural fluid with 85 wbc's with 24% lymphocytes and 4% neutrophils. ASSESSMENT: Prior cerebrovascular accident with suprapubic catheter, cognitive dysfunction, worseni ng mental state, initial admission for change in mental status, no documented fever. Some interstit ial densities left lung base and the findings in the urine. DISCUSSION: The urine findings are most likely a colonization of the urinary tract. We would not r ecommend treating this finding at this point in time. The chest x-ray was concerning for possible a spiration pneumonia. The pleural effusion is exudative in character and I do not see any improvemen t in his mental status, may have had another cerebrovascular accident that is not disclosed by the C T. An MRI might be able to demonstrate that, so I would recommend discontinuation of meropenem and consider MRI to evaluate for subcortical posterior fossa cerebrovascular accident.
[2016-12-17] MEDS: Mirtazapine 15 MG TAB PO SCH (20:43)
[2016-12-17] MEDS: Gabapentin 300 MG CAP PO SCH (20:43)
[2016-12-17] MEDS: Atorvastatin Calcium 10 MG TAB PO SCH (20:43)
[2016-12-18] MEDS: Furosemide 20 MG/2 ML VIAL SLOW IVP SCH ×2 (05:34→14:18)
[2016-12-18 09:17] LABS: Fungus Smear Status Final report (.)
[2016-12-18 09:31] LABS: Vancomycin, Trough 24.6 ug/mL
[2016-12-18] MEDS: Vancomycin HCl 1 GM in Premix Bag 1 BAG IVPB SCH (09:46)
[2016-12-18] MEDS: Lisinopril 5 MG TAB PO SCH (09:52)
[2016-12-18] MEDS: Saccharomyces boulardii 250 MG CAP PO SCH (09:52)
[2016-12-18] MEDS: Cyanocobalamin (Vitamin B-12) 1,000 MCG TAB PO SCH (09:53)
[2016-12-18] MEDS: guaiFENesin ER 600 MG TAB PO SCH ×2 (09:53→22:11)
[2016-12-18] MEDS: Aspirin 81 mg Enteric Coated Tablet PO SCH (09:53)
[2016-12-18] MEDS: Folic Acid 1 MG TAB PO SCH (09:53)
[2016-12-18] MEDS: Carvedilol 6.25 MG TAB PO SCH ×2 (09:53→22:11)
[2016-12-18] MEDS: Apixaban 5 MG TAB PO SCH ×2 (09:53→22:10)
--- NOTE | 2016-12-18 16:29 | PDOC.PN ---
- Subjective Encounter Start Date: 12/18/16 Encounter Start Time: 08:20 Pt seen for followup re: encephalopathy. Keeping eyes tightly shut, not answering questions, grimacing. Unable to complete ROS. - Objective Resuscitation Status: Resuscitation Status DNR:Do Not Resuscitate MAR Reviewed: Yes Vital Signs & Weight: Vital Signs (12 hours) Temp Pulse Resp BP BP Pulse Ox 12/18/16 16:00 96.1 F L 94 18 183/86 H 93 L 12/18/16 12:00 96.1 F L 85 18 175/87 H 94 L 12/18/16 09:53 125/94 H 12/18/16 09:52 78 125/94 H 12/18/16 08:44 96.1 F L 85 18 95 12/18/16 08:00 96 F L 78 14 125/94 H 95 Weight Weight 164 lb I&O: 12/17/16 12/18/16 12/19/16 06:59 06:59 06:59 Intake Total 450 525 Output Total 5150 2450 175 Balance -4700 -1925 -175 Result Diagrams: 12/16/16 05:16 12/16/16 05:16 EKG Reviewed by me: Yes (Tele: electronic V-paced rhythm) Phys Exam - Physical Examination Keeping eyes tightly shut, grimacing Neck: supple Bibasal crackles Cardiovascular: RRR Gastrointestinal: soft, positive bowel sounds Neurological: moves all 4 limbs Deviation from normal: grimacing Dx/Plan (1) Encephalopathy Code(s): G93.40 - ENCEPHALOPATHY, UNSPECIFIED Status: Acute (2) Chronic atrial fibrillation Code(s): I48.2 - CHRONIC ATRIAL FIBRILLATION Status: Chronic (3) Alzheimer's dementia Code(s): G30.9 - ALZHEIMER'S DISEASE, UNSPECIFIED Status: Chronic (4) Chronic diastolic (congestive) heart failure Code(s): I50.32 - CHRONIC DIASTOLIC (CONGESTIVE) HEART FAILURE Status: Chronic (5) Infection due to ESBL-producing Klebsiella pneumoniae Code(s): A49.8 - OTHER BACTERIAL INFECTIONS OF UNSPECIFIED SITE; Z16.12 - EXTENDED SPECTRUM BETA LACTAMASE (ESBL) RESISTANCE Status: Ruled-out Comment : UTI (6) penitentiary-acquired pneumonia Code(s): J18.9 - PNEUMONIA, UNSPECIFIED ORGANISM Status: Suspected - Plan * . Meropenem stopped, pt still on vancomycin. Palliative care service consult re: goals of care. Prognosis guarded. Review of Systems - Medications/Allergies Allergies/Adverse Reactions: Allergies Allergy/AdvReac Type Severity Reaction Status Date / Time allopurinol Allergy Intermediate Hives Verified 12/15/16 22:13 milk Allergy Verified 12/15/16 22:13 Medications: Current Medications Acetaminophen (Tylenol) 650 mg PO Q4H PRN PRN Reason: Headache/Fever or Pain Al Hydroxide/Mg Hydroxide (Maalox) 30 ml PO Q6H PRN PRN Reason: Heartburn or Indigestion Albuterol/Ipratropium (Duoneb) 3 ml NEB [id number] PRN PRN Reason: SOB &/or Wheezing Apixaban (Eliquis) 2.5 mg PO BID [facility] Last Admin: 12/18/16 09:53 Dose: Not Given Artificial Tears (Tears Naturale) 0 drop EA EYE PRN PRN PRN Reason: Dry Eyes Aspirin (Ecotrin) 81 mg PO DAILY [facility] Last Admin: 12/18/16 09:53 Dose: Not Given Atorvastatin Calcium (Lipitor) 10 mg PO HS [facility] Last Admin: 12/17/16 20:43 Dose: Not Given Carvedilol (Coreg) 6.25 mg PO BID [facility] Last Admin: 12/18/16 09:53 Dose: Not Given Cyanocobalamin (Vitamin B-12) 1,000 mcg PO DAILY [facility] Last Admin: 12/18/16 09:53 Dose: Not Given Folic Acid (Folvite) 1 mg PO DAILY [facility] Last Admin: 12/18/16 09:53 Dose: Not Given Furosemide (Lasix) 20 mg SLOW IVP 0600,1400 [facility] Last Admin: 12/18/16 14:18 Dose: 20 mg Gabapentin (Neurontin) 300 mg PO HS [facility] Last Admin: 12/17/16 20:43 Dose: Not Given Guaifenesin (Robitussin Sf) 200 mg PO Q4H PRN PRN Reason: Cough Guaifenesin (Mucinex) 600 mg PO Q12HR [facility] Last Admin: 12/18/16 09:53 Dose: Not Given Haloperidol Lactate (Haldol) 2 mg IM Q6H PRN PRN Reason: . Hydralazine HCl (Apresoline) 10 mg SLOW IVP Q4H PRN PRN Reason: Systolic BP > 180 Last Admin: 12/16/16 20:42 Dose: 10 mg Vancomycin HCl 750 mg/ Sodium (Chloride) 250 mls @ 250 mls/hr IVPB 1000,2200 [facility] Lisinopril (Zestril) 5 mg PO DAILY [facility] Last Admin: 12/18/16 09:52 Dose: Not Given Loperamide HCl (Imodium) 2 mg PO PRN PRN PRN Reason: Diarrhea/Loose Stools Loratadine (Claritin) 10 mg PO DAILYPRN PRN PRN Reason: Sinus Symptoms Magnesium Hydroxide (Milk Of Magnesium) 30 ml PO DAILYPRN PRN PRN Reason: Constipation Mineral Oil/White Petrolatum (Eucerin Cream) 0 gm TOP BIDPRN PRN PRN Reason: Dry Skin Mirtazapine (Remeron) 15 mg PO [facility] Last Admin: 12/17/16 20:43 Dose: Not Given Miscellaneous Medication (Pharmacy To Dose) 1 each IVPB PRN PRN PRN Reason: Pharmacy to dose Nitroglycerin (Nitrostat) 0.4 mg SL Q5MIN PRN PRN Reason: Chest Pain Ondansetron HCl (Zofran Odt) 4 mg PO Q6H PRN PRN Reason: Nausea/Vomiting Ondansetron HCl (Zofran) 4 mg IVP Q6H PRN PRN Reason: Nausea/Vomiting Saccharomyces Boulardii (Florastor) 250 mg PO DAILY [facility] Last Admin: 12/18/16 09:52 Dose: Not Given Senna (Senokot) 2 tab PO HSPRN PRN PRN Reason: Constipation Sodium Chloride (Flush - Normal Saline) 10 ml IVF PRN PRN PRN Reason: Saline Flush Last Admin: 12/17/16 05:53 Dose: 10 ml Sodium Chloride ([place] Nasal [place] 0.65%) 0 ml EA NARE QIDPRN PRN PRN Reason: Nasal Congestion Sodium Chloride (Flush - Normal Saline) 10 ml IVF Q12HR [facility] Last Admin: 12/18/16 09:52 Dose: 10 ml Ziprasidone (Geodon) 10 mg IM Q6H PRN PRN Reason: Agitation Last Admin: 12/17/16 13:43 Dose: 10 mg
[2016-12-18] MEDS: Vancomycin HCl 750 MG in Sodium Chloride 0.9% 250 ML 250 ML IVPB SCH (20:43)
[2016-12-18] MEDS: Mirtazapine 15 MG TAB PO SCH (22:11)
[2016-12-18] MEDS: Atorvastatin Calcium 10 MG TAB PO SCH (22:11)
[2016-12-18] MEDS: Gabapentin 300 MG CAP PO SCH (22:11)
[2016-12-19 04:48] LABS: Hematocrit 36.9 % (42.0-52.0)
[2016-12-19] MEDS: Furosemide 20 MG/2 ML VIAL SLOW IVP SCH ×2 (05:24→14:25)
[2016-12-19] MEDS: Vancomycin HCl 750 MG in Sodium Chloride 0.9% 250 ML 250 ML IVPB SCH ×2 (10:30→22:01)
[2016-12-19] MEDS: Aspirin 81 mg Enteric Coated Tablet PO SCH (11:17)
[2016-12-19] MEDS: Carvedilol 6.25 MG TAB PO SCH ×2 (11:17→22:17)
[2016-12-19] MEDS: Apixaban 5 MG TAB PO SCH ×2 (11:17→22:12)
[2016-12-19] MEDS: Folic Acid 1 MG TAB PO SCH (11:18)
[2016-12-19] MEDS: Cyanocobalamin (Vitamin B-12) 1,000 MCG TAB PO SCH (11:18)
[2016-12-19] MEDS: Lisinopril 5 MG TAB PO SCH (11:18)
[2016-12-19] MEDS: Saccharomyces boulardii 250 MG CAP PO SCH (11:18)
[2016-12-19] MEDS: guaiFENesin ER 600 MG TAB PO SCH ×2 (11:18→22:18)
--- NOTE | 2016-12-19 13:39 | PDOC.PN ---
- Subjective Encounter Start Date: 12/19/16 Encounter Start Time: 08:00 Pt seen for followup re: encephalopathy. More alert today, not answering questions, unable to complete ROS. - Objective Resuscitation Status: Resuscitation Status DNR:Do Not Resuscitate MAR Reviewed: Yes Vital Signs & Weight: Vital Signs (12 hours) Temp Pulse Resp BP BP Pulse Ox 12/19/16 12:00 97.2 F L 67 20 116/58 L 95 12/19/16 11:18 71 154/65 H 12/19/16 11:17 154/65 H 12/19/16 08:00 97.4 F L 71 20 154/65 H 95 12/19/16 04:00 96.1 F L 60 20 150/72 H 97 Weight Weight 162 lb 4.8 oz I&O: 12/18/16 12/19/16 12/20/16 06:59 06:59 06:59 Intake Total 525 590 Output Total 2450 1900 Balance -1925 -1310 Result Diagrams: 12/19/16 04:38 12/19/16 04:38 Additional Labs: Accuchecks 12/19/16 06:00 POC Glucose 76 EKG Reviewed by me: Yes (Tele: V-paced rhythm) Phys Exam - Physical Examination Constitutional: NAD HEENT: moist MMs Neck: no JVD, full ROM Bibasal crackles Cardiovascular: RRR, no rub Gastrointestinal: soft Musculoskeletal: pulses present Neurological: moves all 4 limbs Skin: no rash Dx/Plan (1) Encephalopathy Code(s): G93.40 - ENCEPHALOPATHY, UNSPECIFIED Status: Acute (2) Chronic atrial fibrillation Code(s): I48.2 - CHRONIC ATRIAL FIBRILLATION Status: Chronic (3) Alzheimer's dementia Code(s): G30.9 - ALZHEIMER'S DISEASE, UNSPECIFIED Status: Chronic (4) Chronic diastolic (congestive) heart failure Code(s): I50.32 - CHRONIC DIASTOLIC (CONGESTIVE) HEART FAILURE Status: Chronic (5) Infection due to ESBL-producing Klebsiella pneumoniae Code(s): A49.8 - OTHER BACTERIAL INFECTIONS OF UNSPECIFIED SITE; Z16.12 - EXTENDED SPECTRUM BETA LACTAMASE (ESBL) RESISTANCE Status: Ruled-out Comment : UTI (6) correction-acquired pneumonia Code(s): J18.9 - PNEUMONIA, UNSPECIFIED ORGANISM Status: Suspected - Plan continue antibiotics * . Continue IV vancomycin. Discussed with palliative care team, pt's daughter wants hospice consult, will await consult. Review of Systems - Medications/Allergies Allergies/Adverse Reactions: Allergies Allergy/AdvReac Type Severity Reaction Status Date / Time allopurinol Allergy Intermediate Hives Verified 12/15/16 22:13 milk Allergy Verified 12/15/16 22:13 Medications: Current Medications Acetaminophen (Tylenol) 650 mg PO Q4H PRN PRN Reason: Headache/Fever or Pain Al Hydroxide/Mg Hydroxide (Maalox) 30 ml PO Q6H PRN PRN Reason: Heartburn or Indigestion Albuterol/Ipratropium (Duoneb) 3 ml NEB [id number] PRN PRN Reason: SOB &/or Wheezing Apixaban (Eliquis) 2.5 mg PO BID [facility] Last Admin: 12/19/16 11:17 Dose: Not Given Artificial Tears (Tears Naturale) 0 drop EA EYE PRN PRN PRN Reason: Dry Eyes Aspirin (Ecotrin) 81 mg PO DAILY [facility] Last Admin: 12/19/16 11:17 Dose: Not Given Atorvastatin Calcium (Lipitor) 10 mg PO HS [facility] Last Admin: 12/18/16 22:11 Dose: Not Given Carvedilol (Coreg) 6.25 mg PO BID [facility] Last Admin: 12/19/16 11:17 Dose: Not Given Cyanocobalamin (Vitamin B-12) 1,000 mcg PO DAILY [facility] Last Admin: 12/19/16 11:18 Dose: Not Given Folic Acid (Folvite) 1 mg PO DAILY [facility] Last Admin: 12/19/16 11:18 Dose: Not Given Furosemide (Lasix) 20 mg SLOW IVP 0600,1400 [facility] Last Admin: 12/19/16 05:24 Dose: 20 mg Gabapentin (Neurontin) 300 mg PO HS [facility] Last Admin: 12/18/16 22:11 Dose: Not Given Guaifenesin (Robitussin Sf) 200 mg PO Q4H PRN PRN Reason: Cough Guaifenesin (Mucinex) 600 mg PO Q12HR [facility] Last Admin: 12/19/16 11:18 Dose: Not Given Haloperidol Lactate (Haldol) 2 mg IM Q6H PRN PRN Reason: . Hydralazine HCl (Apresoline) 10 mg SLOW IVP Q4H PRN PRN Reason: Systolic BP > 180 Last Admin: 12/18/16 17:09 Dose: 10 mg Vancomycin HCl 750 mg/ Sodium (Chloride) 250 mls @ 250 mls/hr IVPB 1000,2200 [facility] Last Admin: 12/19/16 10:30 Dose: 250 mls Lisinopril (Zestril) 5 mg PO DAILY [facility] Last Admin: 12/19/16 11:18 Dose: Not Given Loperamide HCl (Imodium) 2 mg PO PRN PRN PRN Reason: Diarrhea/Loose Stools Loratadine (Claritin) 10 mg PO DAILYPRN PRN PRN Reason: Sinus Symptoms Magnesium Hydroxide (Milk Of Magnesium) 30 ml PO DAILYPRN PRN PRN Reason: Constipation Mineral Oil/White Petrolatum (Eucerin Cream) 0 gm TOP BIDPRN PRN PRN Reason: Dry Skin Mirtazapine (Remeron) 15 mg PO HS [facility] Last Admin: 12/18/16 22:11 Dose: Not Given Miscellaneous Medication (Pharmacy To Dose) 1 each IVPB PRN PRN PRN Reason: Pharmacy to dose Nitroglycerin (Nitrostat) 0.4 mg SL Q5MIN PRN PRN Reason: Chest Pain Ondansetron HCl (Zofran Odt) 4 mg PO Q6H PRN PRN Reason: Nausea/Vomiting Ondansetron HCl (Zofran) 4 mg IVP Q6H PRN PRN Reason: Nausea/Vomiting Saccharomyces Boulardii (Florastor) 250 mg PO DAILY [facility] Last Admin: 12/19/16 11:18 Dose: Not Given Senna (Senokot) 2 tab PO HSPRN PRN PRN Reason: Constipation Sodium Chloride (Flush - Normal Saline) 10 ml IVF PRN PRN PRN Reason: Saline Flush Last Admin: 12/19/16 05:24 Dose: 10 ml Sodium Chloride ([place] Nasal [place] 0.65%) 0 ml EA NARE QIDPRN PRN PRN Reason: Nasal Congestion Sodium Chloride (Flush - Normal Saline) 10 ml IVF Q12HR [facility] Last Admin: 12/19/16 10:38 Dose: 10 ml Ziprasidone (Geodon) 10 mg IM Q6H PRN PRN Reason: Agitation Last Admin: 12/17/16 13:43 Dose: 10 mg
[2016-12-19] MEDS: Atorvastatin Calcium 10 MG TAB PO SCH (22:12)
[2016-12-19] MEDS: Mirtazapine 15 MG TAB PO SCH (22:18)
[2016-12-19] MEDS: Gabapentin 300 MG CAP PO SCH (22:18)
[2016-12-20] MEDS: Furosemide 20 MG/2 ML VIAL SLOW IVP SCH ×2 (06:03→14:13)
[2016-12-20 09:38] LABS: Vancomycin, Trough 32.9 ug/mL
[2016-12-20 11:11] VITALS: BMI 22.9
[2016-12-20] MEDS: Aspirin 81 mg Enteric Coated Tablet PO SCH (11:13)
[2016-12-20] MEDS: Apixaban 5 MG TAB PO SCH ×2 (11:13→21:04)
[2016-12-20] MEDS: Lisinopril 5 MG TAB PO SCH (11:14)
[2016-12-20] MEDS: Carvedilol 6.25 MG TAB PO SCH ×2 (11:14→21:04)
[2016-12-20] MEDS: Cyanocobalamin (Vitamin B-12) 1,000 MCG TAB PO SCH (11:14)
[2016-12-20] MEDS: guaiFENesin ER 600 MG TAB PO SCH ×2 (11:14→21:04)
[2016-12-20] MEDS: Folic Acid 1 MG TAB PO SCH (11:14)
[2016-12-20] MEDS: Saccharomyces boulardii 250 MG CAP PO SCH (11:15)
[2016-12-20] MEDS: Vancomycin HCl 750 MG in Sodium Chloride 0.9% 250 ML 250 ML IVPB SCH (12:50)
--- NOTE | 2016-12-20 15:08 | PDOC.PN ---
- Subjective Encounter Start Date: 12/20/16 Encounter Start Time: 15:06 -: non-verbal Pt seen for followup re: encephalopathy. Nonverbal, unable to complete ROS. - Objective Resuscitation Status: Resuscitation Status DNR:Do Not Resuscitate MAR Reviewed: Yes Vital Signs & Weight: Vital Signs (12 hours) Temp Pulse Resp BP BP Pulse Ox 12/20/16 13:29 98.1 F 76 18 145/75 H 91 L 12/20/16 08:30 98.1 F 76 18 91 L 12/20/16 07:51 96.8 F L 73 18 127/73 95 12/20/16 04:23 97.2 F L 76 20 105/62 96 Weight Admit Weight 182 lb 14.4 oz Weight 160 lb 3.168 oz I&O: 12/19/16 12/20/16 12/21/16 06:59 06:59 06:59 Intake Total 590 372 Output Total 1900 1875 Balance -1310 -1503 Result Diagrams: 12/19/16 04:38 12/19/16 04:38 EKG Reviewed by me: Yes (Tele: V-paced rhythm) Phys Exam - Physical Examination Constitutional: NAD HEENT: moist MMs Neck: supple Bibasal crackles Cardiovascular: RRR, no rub Gastrointestinal: soft, positive bowel sounds Musculoskeletal: edema present Neurological: moves all 4 limbs Psychiatric: normal affect Dx/Plan (1) Encephalopathy Code(s): G93.40 - ENCEPHALOPATHY, UNSPECIFIED Status: Acute (2) Chronic atrial fibrillation Code(s): I48.2 - CHRONIC ATRIAL FIBRILLATION Status: Chronic (3) Alzheimer's dementia Code(s): G30.9 - ALZHEIMER'S DISEASE, UNSPECIFIED Status: Chronic (4) Chronic diastolic (congestive) heart failure Code(s): I50.32 - CHRONIC DIASTOLIC (CONGESTIVE) HEART FAILURE Status: Chronic (5) Infection due to ESBL-producing Klebsiella pneumoniae Code(s): A49.8 - OTHER BACTERIAL INFECTIONS OF UNSPECIFIED SITE; Z16.12 - EXTENDED SPECTRUM BETA LACTAMASE (ESBL) RESISTANCE Status: Ruled-out Comment : UTI (6) [facility]-acquired pneumonia Code(s): J18.9 - PNEUMONIA, UNSPECIFIED ORGANISM Status: Suspected - Plan continue antibiotics, out of bed/ambulate * . Continue IV vancomycin. Family to meet with hospice care later today to decide re: hospice care. Aspiration risk. Review of Systems - Medications/Allergies Allergies/Adverse Reactions: Allergies Allergy/AdvReac Type Severity Reaction Status Date / Time allopurinol Allergy Intermediate Hives Verified 12/15/16 22:13 milk Allergy Verified 12/15/16 22:13 Medications: Current Medications Acetaminophen (Tylenol) 650 mg PO Q4H PRN PRN Reason: Headache/Fever or Pain Al Hydroxide/Mg Hydroxide (Maalox) 30 ml PO Q6H PRN PRN Reason: Heartburn or Indigestion Albuterol/Ipratropium (Duoneb) 3 ml NEB [id number] PRN PRN Reason: SOB &/or Wheezing Apixaban (Eliquis) 2.5 mg PO BID [facility] Last Admin: 12/20/16 11:13 Dose: Not Given Artificial Tears (Tears Naturale) 0 drop EA EYE PRN PRN PRN Reason: Dry Eyes Aspirin (Ecotrin) 81 mg PO DAILY [facility] Last Admin: 12/20/16 11:13 Dose: Not Given Atorvastatin Calcium (Lipitor) 10 mg PO [facility] Last Admin: 12/19/16 22:12 Dose: Not Given Carvedilol (Coreg) 6.25 mg PO BID [facility] Last Admin: 12/20/16 11:14 Dose: Not Given Cyanocobalamin (Vitamin B-12) 1,000 mcg PO DAILY [facility] Last Admin: 12/20/16 11:14 Dose: Not Given Folic Acid (Folvite) 1 mg PO DAILY [facility] Last Admin: 12/20/16 11:14 Dose: Not Given Furosemide (Lasix) 20 mg SLOW IVP 0600,1400 [facility] Last Admin: 12/20/16 14:13 Dose: Not Given Gabapentin (Neurontin) 300 mg PO [facility] Last Admin: 12/19/16 22:18 Dose: Not Given Guaifenesin (Robitussin Sf) 200 mg PO Q4H PRN PRN Reason: Cough Guaifenesin (Mucinex) 600 mg PO Q12HR [facility] Last Admin: 12/20/16 11:14 Dose: Not Given Haloperidol Lactate (Haldol) 2 mg IM Q6H PRN PRN Reason: . Hydralazine HCl (Apresoline) 10 mg SLOW IVP Q4H PRN PRN Reason: Systolic BP > 180 Last Admin: 09/26/17 17:09 Dose: 10 mg Vancomycin HCl 1 gm/ Device 200 mls @ 200 mls/hr IVPB .PENDING LEVEL [facility] Lisinopril (Zestril) 5 mg PO DAILY [facility] Last Admin: 12/20/16 11:14 Dose: Not Given Loperamide HCl (Imodium) 2 mg PO PRN PRN PRN Reason: Diarrhea/Loose Stools Loratadine (Claritin) 10 mg PO DAILYPRN PRN PRN Reason: Sinus Symptoms Magnesium Hydroxide (Milk Of Magnesium) 30 ml PO DAILYPRN PRN PRN Reason: Constipation Mineral Oil/White Petrolatum (Eucerin Cream) 0 gm TOP BIDPRN PRN PRN Reason: Dry Skin Mirtazapine (Remeron) 15 mg PO [facility] Last Admin: 12/19/16 22:18 Dose: Not Given Miscellaneous Medication (Pharmacy To Dose) 1 each IVPB PRN PRN PRN Reason: Pharmacy to dose Nitroglycerin (Nitrostat) 0.4 mg SL Q5MIN PRN PRN Reason: Chest Pain Ondansetron HCl (Zofran Odt) 4 mg PO Q6H PRN PRN Reason: Nausea/Vomiting Ondansetron HCl (Zofran) 4 mg IVP Q6H PRN PRN Reason: Nausea/Vomiting Saccharomyces Boulardii (Florastor) 250 mg PO DAILY [facility] Last Admin: 12/20/16 11:15 Dose: Not Given Senna (Senokot) 2 tab PO HSPRN PRN PRN Reason: Constipation Sodium Chloride (Flush - Normal Saline) 10 ml IVF PRN PRN PRN Reason: Saline Flush Last Admin: 12/19/16 14:26 Dose: 10 ml Sodium Chloride ([place] Nasal [place] 0.65%) 0 ml EA NARE QIDPRN PRN PRN Reason: Nasal Congestion Sodium Chloride (Flush - Normal Saline) 10 ml IVF Q12HR [facility] Last Admin: 12/19/16 22:01 Dose: 10 ml Ziprasidone (Geodon) 10 mg IM Q6H PRN PRN Reason: Agitation Last Admin: 12/17/16 13:43 Dose: 10 mg
[2016-12-20] MEDS: Meropenem 1 GM in Sodium Chloride 0.9% 100 ML IVPB SCH (20:41)
[2016-12-20] MEDS: Atorvastatin Calcium 10 MG TAB PO SCH (21:04)
[2016-12-20] MEDS: Mirtazapine 15 MG TAB PO SCH (21:04)
[2016-12-20] MEDS: Gabapentin 300 MG CAP PO SCH (21:04)
[2016-12-20 21:21] LABS: Vancomycin, Random 27.4 ug/mL (See Comment)
[2016-12-21] MEDS: Meropenem 1 GM in Sodium Chloride 0.9% 100 ML IVPB SCH ×3 (04:55→21:48)
[2016-12-21 05:40] LABS: Hematocrit 38.3 % (42.0-52.0)
[2016-12-21] MEDS: Furosemide 20 MG/2 ML VIAL SLOW IVP SCH ×2 (06:30→14:31)
[2016-12-21] MEDS ORDERED: Sodium Chloride 0.9% 1,000 ML IV SCH (09:15)
[2016-12-21] MEDS: Carvedilol 6.25 MG TAB PO SCH ×2 (10:07→21:49)
[2016-12-21] MEDS: Lisinopril 5 MG TAB PO SCH (10:07)
[2016-12-21] MEDS: Saccharomyces boulardii 250 MG CAP PO SCH (10:07)
[2016-12-21] MEDS: Folic Acid 1 MG TAB PO SCH (10:07)
[2016-12-21] MEDS: Apixaban 5 MG TAB PO SCH ×2 (10:07→21:49)
[2016-12-21] MEDS: Cyanocobalamin (Vitamin B-12) 1,000 MCG TAB PO SCH (10:07)
[2016-12-21] MEDS: Aspirin 81 mg Enteric Coated Tablet PO SCH (10:07)
[2016-12-21] MEDS: guaiFENesin ER 600 MG TAB PO SCH ×2 (10:07→21:50)
[2016-12-21] MEDS: Sodium Chloride 0.9% 1,000 ML IV SCH (11:09)
--- NOTE | 2016-12-21 13:57 | PDOC.PN ---
- Subjective Encounter Start Date: 12/21/16 Encounter Start Time: 07:00 Pt seen for followup re; encephalopathy. Not responding to questions, unable to complete ROS. - Objective Resuscitation Status: Resuscitation Status DNR:Do Not Resuscitate MAR Reviewed: Yes Vital Signs & Weight: Vital Signs (12 hours) Temp Pulse Resp BP BP Pulse Ox 12/21/16 11:28 97.5 F L 80 18 125/83 95 12/21/16 10:07 87 154/65 H 12/21/16 08:00 97.6 F 87 18 93 L 12/21/16 07:45 97.6 F 87 18 123/87 93 L 12/21/16 06:30 67 142/90 H 12/21/16 04:45 97.2 F L 60 14 136/70 95 Weight Admit Weight 182 lb 14.4 oz Weight 158 lb 9.6 oz I&O: 12/20/16 12/21/16 12/22/16 06:59 06:59 06:59 Intake Total 372 210 Output Total 1875 450 Balance -1503 -240 Result Diagrams: 12/21/16 05:20 12/21/16 05:20 EKG Reviewed by me: Yes (Tele: V-paced) Phys Exam - Physical Examination Constitutional: NAD Dry mucosae Respiratory: no wheezing, no rhonchi Mateusz crackles+ Cardiovascular: RRR Gastrointestinal: soft, positive bowel sounds Neurological: moves all 4 limbs Deviation from normal: Unable to assess mood, affect or orientation Dx/Plan (1) Encephalopathy Code(s): G93.40 - ENCEPHALOPATHY, UNSPECIFIED Status: Acute (2) Chronic atrial fibrillation Code(s): I48.2 - CHRONIC ATRIAL FIBRILLATION Status: Chronic (3) Alzheimer's dementia Code(s): G30.9 - ALZHEIMER'S DISEASE, UNSPECIFIED Status: Chronic (4) Chronic diastolic (congestive) heart failure Code(s): I50.32 - CHRONIC DIASTOLIC (CONGESTIVE) HEART FAILURE Status: Chronic (5) Infection due to ESBL-producing Klebsiella pneumoniae Code(s): A49.8 - OTHER BACTERIAL INFECTIONS OF UNSPECIFIED SITE; Z16.12 - EXTENDED SPECTRUM BETA LACTAMASE (ESBL) RESISTANCE Status: Ruled-out Comment : UTI (6) senior care-acquired pneumonia Code(s): J18.9 - PNEUMONIA, UNSPECIFIED ORGANISM Status: Suspected - Plan plan discussed w/ family, continue antibiotics * . Had a lengthy discussion with daughter and yesterday over the phone. They are leaning towards hospice care. However, they are concerned re; stopping antibiotics since pt had similar episodes in the past with resolution after antibiotic treatment. They want to continue active treatment measures ( including antibiotics) for another 24 hours or so. Meropenem has been restarted , continuing vancomycin, will await family's decision re: hospice care. Prognosis poor. Review of Systems - Medications/Allergies Allergies/Adverse Reactions: Allergies Allergy/AdvReac Type Severity Reaction Status Date / Time allopurinol Allergy Intermediate Hives Verified 12/15/16 22:13 milk Allergy Verified 12/15/16 22:13 Medications: Current Medications Acetaminophen (Tylenol) 650 mg PO Q4H PRN PRN Reason: Headache/Fever or Pain Al Hydroxide/Mg Hydroxide (Maalox) 30 ml PO Q6H PRN PRN Reason: Heartburn or Indigestion Albuterol/Ipratropium (Duoneb) 3 ml NEB [id number] PRN PRN Reason: SOB &/or Wheezing Apixaban (Eliquis) 2.5 mg PO BID [facility] Last Admin: 12/21/16 10:07 Dose: Not Given Artificial Tears (Tears Naturale) 0 drop EA EYE PRN PRN PRN Reason: Dry Eyes Aspirin (Ecotrin) 81 mg PO DAILY [facility] Last Admin: 12/21/16 10:07 Dose: Not Given Atorvastatin Calcium (Lipitor) 10 mg PO HS [facility] Last Admin: 12/20/16 21:04 Dose: Not Given Carvedilol (Coreg) 6.25 mg PO BID [facility] Last Admin: 12/21/16 10:07 Dose: Not Given Cyanocobalamin (Vitamin B-12) 1,000 mcg PO DAILY [facility] Last Admin: 12/21/16 10:07 Dose: Not Given Folic Acid (Folvite) 1 mg PO DAILY [facility] Last Admin: 12/21/16 10:07 Dose: Not Given Furosemide (Lasix) 20 mg SLOW IVP 0600,1400 [facility] Last Admin: 12/21/16 06:30 Dose: 20 mg Gabapentin (Neurontin) 300 mg PO [facility] Last Admin: 12/20/16 21:04 Dose: Not Given Guaifenesin (Robitussin Sf) 200 mg PO Q4H PRN PRN Reason: Cough Guaifenesin (Mucinex) 600 mg PO Q12HR [facility] Last Admin: 12/21/16 10:07 Dose: Not Given Haloperidol Lactate (Haldol) 2 mg IM Q6H PRN PRN Reason: . Hydralazine HCl (Apresoline) 10 mg SLOW IVP Q4H PRN PRN Reason: Systolic BP > 180 Last Admin: 12/18/16 17:09 Dose: 10 mg Vancomycin HCl 1 gm/ Device 200 mls @ 200 mls/hr IVPB .PENDING LEVEL [facility] Meropenem 1 gm/ Sodium (Chloride) 100 mls @ 200 mls/hr IVPB 0400,1200,2000 [facility] Last Admin: 12/21/16 11:09 Dose: 100 mls Sodium Chloride (Normal Saline 0.9%) 1,000 mls @ 60 mls/hr IV .[id number] [facility] Last Admin: 12/21/16 11:09 Dose: 1,000 mls Lisinopril (Zestril) 5 mg PO DAILY [facility] Last Admin: 12/21/16 10:07 Dose: Not Given Loperamide HCl (Imodium) 2 mg PO PRN PRN PRN Reason: Diarrhea/Loose Stools Loratadine (Claritin) 10 mg PO DAILYPRN PRN PRN Reason: Sinus Symptoms Magnesium Hydroxide (Milk Of Magnesium) 30 ml PO DAILYPRN PRN PRN Reason: Constipation Mineral Oil/White Petrolatum (Eucerin Cream) 0 gm TOP BIDPRN PRN PRN Reason: Dry Skin Mirtazapine (Remeron) 15 mg PO HS [facility] Last Admin: 12/20/16 21:04 Dose: Not Given Miscellaneous Medication (Pharmacy To Dose) 1 each IVPB PRN PRN PRN Reason: Pharmacy to dose Nitroglycerin (Nitrostat) 0.4 mg SL Q5MIN PRN PRN Reason: Chest Pain Ondansetron HCl (Zofran Odt) 4 mg PO Q6H PRN PRN Reason: Nausea/Vomiting Ondansetron HCl (Zofran) 4 mg IVP Q6H PRN PRN Reason: Nausea/Vomiting Saccharomyces Boulardii (Florastor) 250 mg PO DAILY [facility] Last Admin: 12/21/16 10:07 Dose: Not Given Senna (Senokot) 2 tab PO HSPRN PRN PRN Reason: Constipation Sodium Chloride (Flush - Normal Saline) 10 ml IVF PRN PRN PRN Reason: Saline Flush Last Admin: 12/19/16 14:26 Dose: 10 ml Sodium Chloride ([place] Nasal [place] 0.65%) 0 ml EA NARE QIDPRN PRN PRN Reason: Nasal Congestion Sodium Chloride (Flush - Normal Saline) 10 ml IVF Q12HR [facility] Last Admin: 12/21/16 11:34 Dose: Not Given Ziprasidone (Geodon) 10 mg IM Q6H PRN PRN Reason: Agitation Last Admin: 12/17/16 13:43 Dose: 10 mg
[2016-12-21 21:22] LABS: Vancomycin, Random 20.6 ug/mL (See Comment)
[2016-12-21] MEDS: Atorvastatin Calcium 10 MG TAB PO SCH (21:49)
[2016-12-21] MEDS: Gabapentin 300 MG CAP PO SCH (21:50)
[2016-12-21] MEDS: Mirtazapine 15 MG TAB PO SCH (21:50)
[2016-12-22] MEDS: Sodium Chloride 0.9% 1,000 ML IV SCH ×2 (01:53→21:01)
[2016-12-22] MEDS: Meropenem 1 GM in Sodium Chloride 0.9% 100 ML IVPB SCH ×3 (03:44→20:38)
[2016-12-22] MEDS: Furosemide 20 MG/2 ML VIAL SLOW IVP SCH ×2 (05:45→15:22)
[2016-12-22 09:30] LABS: Vancomycin, Random 19.2 ug/mL (See Comment)
[2016-12-22] MEDS: Apixaban 5 MG TAB PO SCH ×2 (11:00→20:50)
[2016-12-22] MEDS: Aspirin 81 mg Enteric Coated Tablet PO SCH (11:00)
[2016-12-22] MEDS: guaiFENesin ER 600 MG TAB PO SCH ×2 (11:00→20:52)
[2016-12-22] MEDS: Carvedilol 6.25 MG TAB PO SCH ×2 (11:00→20:52)
[2016-12-22] MEDS: Cyanocobalamin (Vitamin B-12) 1,000 MCG TAB PO SCH (11:00)
[2016-12-22] MEDS: Folic Acid 1 MG TAB PO SCH (11:00)
[2016-12-22] MEDS: Lisinopril 5 MG TAB PO SCH (11:01)
[2016-12-22] MEDS: Saccharomyces boulardii 250 MG CAP PO SCH (11:01)
[2016-12-22] MEDS: Vancomycin HCl 1 GM in Premix Bag 1 BAG IVPB SCH (11:06)
--- NOTE | 2016-12-22 12:31 | PDOC.PN ---
- Subjective Encounter Start Date: 12/22/16 Encounter Start Time: 07:20 Pt seen for followup re; encephalopathy. More alert today, answering questions. - Objective Resuscitation Status: Resuscitation Status DNR:Do Not Resuscitate Vital Signs & Weight: Vital Signs (12 hours) Temp Pulse Resp BP BP Pulse Ox 12/22/16 11:35 97.6 F 66 14 115/69 98 12/22/16 11:01 68 12/22/16 11:00 154/65 H 12/22/16 08:00 97.6 F 68 14 96 12/22/16 07:42 97.6 F 68 14 117/58 L 96 12/22/16 03:57 97.7 F 61 22 H 122/61 97 Weight Admit Weight 182 lb 14.4 oz Weight 156 lb 1.6 oz I&O: 12/21/16 12/22/16 12/23/16 06:59 06:59 06:59 Intake Total 210 1774 Output Total 450 1525 Balance -240 249 Result Diagrams: 12/21/16 05:20 12/21/16 05:20 Phys Exam - Physical Examination Constitutional: NAD HEENT: moist MMs, oral pharynx no lesions Neck: supple Respiratory: no wheezing, no rales, no rhonchi, clear to auscultation bilateral Cardiovascular: RRR, no rub Gastrointestinal: soft, positive bowel sounds Musculoskeletal: pulses present Neurological: moves all 4 limbs Psychiatric: normal affect Deviation from normal: oriented to person, knows his birthday, not oriented to place, month, year Skin: no rash Dx/Plan (1) Encephalopathy Code(s): G93.40 - ENCEPHALOPATHY, UNSPECIFIED Status: Acute (2) Chronic atrial fibrillation Code(s): I48.2 - CHRONIC ATRIAL FIBRILLATION Status: Chronic (3) Alzheimer's dementia Code(s): G30.9 - ALZHEIMER'S DISEASE, UNSPECIFIED Status: Chronic (4) Chronic diastolic (congestive) heart failure Code(s): I50.32 - CHRONIC DIASTOLIC (CONGESTIVE) HEART FAILURE Status: Chronic (5) Infection due to ESBL-producing Klebsiella pneumoniae Code(s): A49.8 - OTHER BACTERIAL INFECTIONS OF UNSPECIFIED SITE; Z16.12 - EXTENDED SPECTRUM BETA LACTAMASE (ESBL) RESISTANCE Status: Ruled-out Comment : UTI (6) long term-acquired pneumonia Code(s): J18.9 - PNEUMONIA, UNSPECIFIED ORGANISM Status: Suspected - Plan continue antibiotics, PT/OT, speech therapy, out of bed/ambulate * . Encephalopathy improving, ? due to infection, continue antibiotics. watch for aspiration. Review of Systems - Review of Systems Constitutional: negative: Fever, Chills, Sweats, Weakness, Malaise Respiratory: negative: Cough, Dry, Shortness of Breath, Hemoptysis, SOB with Excertion, Pleuritic Pain, Sputum, Wheezing Cardiovascular: negative: Chest Pain, Palpitations, Orthopnea, Paroxysmal Noc. Dyspnea, Edema, Light Headedness - Medications/Allergies Allergies/Adverse Reactions: Allergies Allergy/AdvReac Type Severity Reaction Status Date / Time allopurinol Allergy Intermediate Hives Verified 12/15/16 22:13 milk Allergy Verified 12/15/16 22:13 Medications: Current Medications Acetaminophen (Tylenol) 650 mg PO Q4H PRN PRN Reason: Headache/Fever or Pain Al Hydroxide/Mg Hydroxide (Maalox) 30 ml PO Q6H PRN PRN Reason: Heartburn or Indigestion Albuterol/Ipratropium (Duoneb) 3 ml NEB [id number] PRN PRN Reason: SOB &/or Wheezing Apixaban (Eliquis) 2.5 mg PO BID [facility] Last Admin: 12/22/16 11:00 Dose: Not Given Artificial Tears (Tears Naturale) 0 drop EA EYE PRN PRN PRN Reason: Dry Eyes Aspirin (Ecotrin) 81 mg PO DAILY [facility] Last Admin: 12/22/16 11:00 Dose: Not Given Atorvastatin Calcium (Lipitor) 10 mg PO [facility] Last Admin: 12/21/16 21:49 Dose: Not Given Carvedilol (Coreg) 6.25 mg PO BID [facility] Last Admin: 12/22/16 11:00 Dose: Not Given Cyanocobalamin (Vitamin B-12) 1,000 mcg PO DAILY [facility] Last Admin: 12/22/16 11:00 Dose: Not Given Folic Acid (Folvite) 1 mg PO DAILY [facility] Last Admin: 12/22/16 11:00 Dose: Not Given Furosemide (Lasix) 20 mg SLOW IVP 0600,1400 [facility] Last Admin: 12/22/16 05:45 Dose: 20 mg Gabapentin (Neurontin) 300 mg PO [facility] Last Admin: 12/21/16 21:50 Dose: Not Given Guaifenesin (Robitussin Sf) 200 mg PO Q4H PRN PRN Reason: Cough Guaifenesin (Mucinex) 600 mg PO Q12HR [facility] Last Admin: 12/22/16 11:00 Dose: Not Given Haloperidol Lactate (Haldol) 2 mg IM Q6H PRN PRN Reason: . Hydralazine HCl (Apresoline) 10 mg SLOW IVP Q4H PRN PRN Reason: Systolic BP > 180 Last Admin: 12/18/16 17:09 Dose: 10 mg Vancomycin HCl 1 gm/ Device 200 mls @ 200 mls/hr IVPB Q24HR@1100 [facility] Last Admin: 12/22/16 11:06 Dose: 200 mls Meropenem 1 gm/ Sodium (Chloride) 100 mls @ 200 mls/hr IVPB 0400,1200,2000 [facility] Last Admin: 12/22/16 03:44 Dose: 100 mls Sodium Chloride (Normal Saline 0.9%) 1,000 mls @ 60 mls/hr IV .[id number] [facility] Last Admin: 12/22/16 01:53 Dose: 1,000 mls Lisinopril (Zestril) 5 mg PO DAILY [facility] Last Admin: 12/22/16 11:01 Dose: Not Given Loperamide HCl (Imodium) 2 mg PO PRN PRN PRN Reason: Diarrhea/Loose Stools Loratadine (Claritin) 10 mg PO DAILYPRN PRN PRN Reason: Sinus Symptoms Magnesium Hydroxide (Milk Of Magnesium) 30 ml PO DAILYPRN PRN PRN Reason: Constipation Mineral Oil/White Petrolatum (Eucerin Cream) 0 gm TOP BIDPRN PRN PRN Reason: Dry Skin Mirtazapine (Remeron) 15 mg PO HS [facility] Last Admin: 12/21/16 21:50 Dose: Not Given Miscellaneous Medication (Pharmacy To Dose) 1 each IVPB PRN PRN PRN Reason: Pharmacy to dose Nitroglycerin (Nitrostat) 0.4 mg SL Q5MIN PRN PRN Reason: Chest Pain Ondansetron HCl (Zofran Odt) 4 mg PO Q6H PRN PRN Reason: Nausea/Vomiting Ondansetron HCl (Zofran) 4 mg IVP Q6H PRN PRN Reason: Nausea/Vomiting Saccharomyces Boulardii (Florastor) 250 mg PO DAILY [facility] Last Admin: 12/22/16 11:01 Dose: Not Given Senna (Senokot) 2 tab PO HSPRN PRN PRN Reason: Constipation Sodium Chloride (Flush - Normal Saline) 10 ml IVF PRN PRN PRN Reason: Saline Flush Last Admin: 12/19/16 14:26 Dose: 10 ml Sodium Chloride ([place] Nasal [place] 0.65%) 0 ml EA NARE QIDPRN PRN PRN Reason: Nasal Congestion Sodium Chloride (Flush - Normal Saline) 10 ml IVF Q12HR [facility] Last Admin: 12/22/16 11:01 Dose: Not Given Ziprasidone (Geodon) 10 mg IM Q6H PRN PRN Reason: Agitation Last Admin: 12/17/16 13:43 Dose: 10 mg
[2016-12-22] MEDS: Mirtazapine 15 MG TAB PO SCH (20:51)
[2016-12-22] MEDS: Gabapentin 300 MG CAP PO SCH (20:51)
[2016-12-22] MEDS: Atorvastatin Calcium 10 MG TAB PO SCH (20:51)
[2016-12-23] MEDS: Meropenem 1 GM in Sodium Chloride 0.9% 100 ML IVPB SCH ×3 (04:15→21:07)
[2016-12-23 04:45] LABS: Hematocrit 36.7 % (42.0-52.0)
[2016-12-23] MEDS: Furosemide 20 MG/2 ML VIAL SLOW IVP SCH ×2 (05:53→13:12)
[2016-12-23] MEDS: Apixaban 5 MG TAB PO SCH ×2 (09:28→21:08)
[2016-12-23] MEDS: Lisinopril 5 MG TAB PO SCH (09:29)
[2016-12-23] MEDS: Aspirin 81 mg Enteric Coated Tablet PO SCH (09:29)
[2016-12-23] MEDS: guaiFENesin ER 600 MG TAB PO SCH ×2 (09:29→21:08)
[2016-12-23] MEDS: Cyanocobalamin (Vitamin B-12) 1,000 MCG TAB PO SCH (09:30)
[2016-12-23] MEDS: Folic Acid 1 MG TAB PO SCH (09:30)
[2016-12-23] MEDS: Carvedilol 6.25 MG TAB PO SCH ×2 (09:31→21:09)
[2016-12-23] MEDS: Saccharomyces boulardii 250 MG CAP PO SCH (09:31)
--- NOTE | 2016-12-23 10:53 | PDOC.PN ---
- Subjective Encounter Start Date: 12/23/16 Encounter Start Time: 10:52 Patient seen and examined, no major changes in last 24 ours, nurse at bedside. - Objective Resuscitation Status: Resuscitation Status DNR:Do Not Resuscitate Vital Signs & Weight: Vital Signs (12 hours) Temp Pulse Resp BP BP BP BP 12/23/16 09:31 98/60 12/23/16 09:29 66 12/23/16 07:48 97.6 F 66 16 98/60 12/23/16 04:15 97.7 F 78 18 131/70 12/23/16 00:36 98.6 F 66 18 107/57 L Pulse Ox 12/23/16 09:31 12/23/16 09:29 12/23/16 07:48 97 12/23/16 04:15 94 L 12/23/16 00:36 97 Weight Admit Weight 182 lb 14.4 oz Weight 158 lb 14.4 oz I&O: 12/22/16 12/23/16 12/24/16 06:59 06:59 06:59 Intake Total 1774 2816 Output Total 1525 1700 Balance 249 1116 Result Diagrams: 12/23/16 03:56 12/23/16 03:56 Phys Exam - Physical Examination Constitutional: NAD HEENT: PERRLA, moist MMs Neck: no nodes, no JVD Respiratory: no wheezing, no rales Cardiovascular: RRR, no significant murmur Gastrointestinal: soft, non-tender Musculoskeletal: pulses present, edema present (trace) Neurological: normal sensation, moves all 4 limbs Psychiatric: normal affect Deviation from normal: confused Skin: no rash, normal turgor Dx/Plan (1) ESBL (extended spectrum beta-lactamase) producing bacteria infection Code(s): A49.9 - BACTERIAL INFECTION, UNSPECIFIED; Z16.12 - EXTENDED SPECTRUM BETA LACTAMASE (ESBL) RESISTANCE Status: Acute (2) Encephalopathy Code(s): G93.40 - ENCEPHALOPATHY, UNSPECIFIED Status: Acute (3) Alzheimer's dementia Code(s): G30.9 - ALZHEIMER'S DISEASE, UNSPECIFIED Status: Chronic (4) Chronic atrial fibrillation Code(s): I48.2 - CHRONIC ATRIAL FIBRILLATION Status: Chronic - Plan * continue current plan of care * cont abx, PT/OT * nurse at bedside taking care of the patient and helping patient eat breakfast * speech evaluation * enecephalopathy slowly improving per staff * no changes in plan for now * no family at bedside
[2016-12-23] MEDS: Vancomycin HCl 1 GM in Premix Bag 1 BAG IVPB SCH (11:07)
[2016-12-23] MEDS: Sodium Chloride 0.9% 1,000 ML IV SCH (11:09)
--- NOTE | 2016-12-23 13:31 | PDOC.EVN ---
Event Note - Event Note Event Note: Urological evaluation placed for exchange of almazan catheter, will need repeat urine culture after catheter exchange as patient grew ESBL from urine culture.
--- NOTE | 2016-12-23 18:35 | CON ---
DATE OF CONSULTATION: 12/23/2016 REASON FOR CONSULTATION: 1. ESBL-positive Klebsiella urine culture from SP tube without evidence of sepsis. 2. Urinary retention with indwelling Hoyt catheter. 3. Chronically ill state. HISTORY OF PRESENT ILLNESS: Mr. Michael Mejias is a pleasant 89-year-old white male who was admit margot via the Emergency Department on 12/15/2016 with a history of CVA, congestive heart failure, prob able urinary tract infection and encephalopathy. The patient has in addition chronic atrial fibrill ation with sick sinus syndrome and has a pacemaker for management of that as well as anticoagulation therapy. He resides in the [facility]. The patient was brought to the Emergency D epartment because he was having hematuria and was initially given antibiotic therapy with Levaquin. The patient continued to deteriorate and was ultimately brought to the Emergency Department. Mr. Chavo segovia is a regular Urology patient of Dr. Crowley in [place] and has had an indwelling suprapubic tub e for about 6 months by his report. Mr. Mejias has had a previous indwelling Hoyt catheter and octavia paz ended up with an iatrogenic hypospadias. He had a previous dorsal slit procedure as well. Mr. Mejias is reporting no complaints of pain this morning. He is not having any significant difficu lties and his hematuria is essentially completely resolved while in hospital. He has a SP tube, which has not been changed in about 1 month by staff report and the patient's self report. PAST MEDICAL HISTORY: 1. Atrial fibrillation with pacemaker. 2. Sick sinus syndrome. 3. Chronic anticoagulation. 4. 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 5. Alzheimer dementia. 6. History of cerebrovascular accident. 7. Hypothyroidism. 8. Hypertension. PAST SURGICAL HISTORY: 1. The patient had colon surgery performed opened through an upper abdominal incision x2. 2. Suprapubic catheter insertion. 3. History of neck and back surgery in the past. 4. Permanent left chest wall pacemaker placement. PSYCHIATRIC HISTORY: The patient has anxiety, depression and Alzheimer type dementia. SOCIAL HISTORY: The patient currently lives in a [facility] and is retired. He for nataliya was employed by [employer]. He has no history of cigarette smoking or tob acco abuse. He does not consume alcohol. FAMILY MEDICAL HISTORY: Positive for coronary artery disease. No known history of prostate cancer or disorders. ALLERGIES: No known drug allergies by patient's report. REGULAR HOME MEDICATIONS: Include Eliquis 2.5 mg daily, gabapentin 300 mg p.o. at bedtime and [place] on 15 mg p.o. q. day. PHYSICAL EXAMINATION: VITAL SIGNS: Temperature is 96.5, pulse 63, respirations 16, O2 saturation on room air is 98% and b lood pressure is 100/56. GENERAL: This is an awake and alert white male in no apparent distress. He is not very well orient ed. He does remember portions of his history. He does seem fatigued when questioned about even sli ght details. HEENT: Extraocular movements are intact. Sclerae are anicteric. Oropharynx is clear. NECK: Supple. LUNGS: Clear to auscultation bilaterally. CARDIAC: There is a regular rate and rhythm. There is a left chest wall pacemaker present. This a ppears to have been present for several years. ABDOMEN: Soft and nontender. There is a midline supraumbilical surgical incisional scar compatible with the patient's known history of prior colon surgeries. There is no evidence of hernia along th at. A suprapubic tube is present, 22 German is draining straw-colored urine. GENITOURINARY: The patient has an iatrogenic type hypospadias with erosion of the urethra in the ve ntral surface. There is also evidence of prior dorsal slit procedure, which actually appears latera l on this patient and the patient's suprapubic tube is irrigated. He does have incontinence and salud ks into the diaper with the filled volume of greater than 120 mL. Testes are benign bilaterally. T hey are smooth, anodular and nontender. Prostate gland is palpated. This does not feel overly enla rged and possibly is subject to previous resection. There is brown stool present in the rectum. He does not have constipation on today's exam. EXTREMITIES: Appear within normal limits with no clubbing, cyanosis or edema. REVIEW OF SYSTEMS: Constitutional: No current complaints of fever or chills. The patient has not had a fever during this hospitalization. No complaints of weight loss or weight gain. The patient does report that he feels fatigued and tired. Pulmonary: Negative. Cardiac: Positive for current anticoagulation secondary to history of atrial fibrillation and pacemaker. The patient had no ariadne nary artery disease history. Gastrointestinal: The patient reports colon surgeries x2. Also, a po ssible gallbladder surgery. Musculoskeletal: The patient reports previous neck and possibly back s urgery in the past as well. Genitourinary: The patient reports urinary retention requiring long-te rm indwelling Hoyt catheter and subsequent suprapubic tube placement, which he reports has been pre sent for about 6 months. Musculoskeletal: The patient denies any previous joint surgery or other m ajor orthopedic interventions. Reports no broken bones. Review of systems is otherwise negative x1 2 systems. LABORATORY AND X-RAY FINDINGS: Microbiology: A Klebsiella pneumoniae species of bacteria with ESBL characteristics was isolated and apparently not from a new catheter obtained on 12/15/2016, which w ould have been his ER visit. This organism is sensitive to AMIKACIN, CEFOXITIN, GENTAMICIN and DANNY PENEM as well as TOBRAMYCIN, but essentially AMINOGLYCOSIDE sensitive. The patient has 2 negative b lood cultures as well. This suggests the patient is not actually septic from the cultured organism. ASSESSMENT AND PLAN: 1. Extended-spectrum beta-lactamase organism obtained from indwelling old catheter and suprapubic s ite. The patient's urine originally from indwelling suprapubic tube should not be cultured and cert ainly should not be cultured from an old SP tube. I would recommend not treating any colonization a s this only leads to further selection for multidrug resistant organisms. The patient is not actual ly septic from a urine infection. I would avoid treating the patient with antibiotic coverage. Ins tead, I would recommend frequent changes of indwelling hardware such that excessive colonization calvo s not occur. In a patient such as this, the SP tube could be changed by home health or his half-way on a weekly basis. 2. History of multiple complications secondary to indwelling Hoyt catheters. Suprapubic tube appe ars to be appropriate for this patient with a degree of dementia. He has an iatrogenic hypospadias and a probable history of previous dorsal slit procedure based on close exam. 3. Hematuria episode in conjunction with old indwelling catheter. Once again, treatment is frequen t changes of the SP tube and I recommend weekly changes in this patient who is having issues. Colon ization should not consider the same as infection as this patient's skin may be colonized with organ isms and essentially the skin is topologically in contact with the lining of his bladder. I think w e should not be concerned about any organisms that are growing there unless there are found in his b lood simultaneously. The patient may follow up with Dr. Crowley in [place] for further urologic followup.
--- NOTE | 2016-12-23 20:24 | OP ---
DATE OF PROCEDURE: 12/23/2016 PREOPROCEDURAL DIAGNOSES: 1. Urinary retention. 2. Urinary incontinence, overflow type. 3. History of iatrogenic hypospadias. 4. Extended-spectrum beta-lactamase Klebsiella urinary tract infection. 5. Indwelling suprapubic tube. POSTPROCEDURAL DIAGNOSIS: Complicated replacement of indwelling suprapubic tube. BRIEF HISTORY AND INDICATION FOR PROCEDURE: Mr. Michael Mejias is a pleasant 89-year-old white ma le with an indwelling suprapubic tube. He has developed an ESBL Klebsiella UTI and needs exchange o f his SP tube for hygienic purposes. The patient is a regular patient of Dr. Torsten Crowley in [place] and has an indwelling SP tube. PROCEDURE IN DETAIL: The patient was prepped and draped in usual sterile fashion. The existing SP tube was prepped into the wound. Sterile drape was applied. The patient's bladder was irrigated ex tensively and total particulate material was removed. I deflated the catheter balloon leaving appro ximately 120 mL of irrigant in the patient's bladder. A new 22 Liberian silicone-coated latex cathete r was passed. After removal of the existing catheter, the balloon was inflated to 20 mL. This cath eter irrigated and flushed freely without difficulty. There was no evidence of gross bleeding. The re was no significant degranulation tissue. We used the existing tract for replacement of the tube. CPT code is .
[2016-12-23] MEDS ORDERED: Sodium Chloride 0.9% 250 ML 250 ML IVPB SCH (21:00)
[2016-12-23] MEDS: Atorvastatin Calcium 10 MG TAB PO SCH (21:08)
[2016-12-23] MEDS: Mirtazapine 15 MG TAB PO SCH (21:10)
[2016-12-23] MEDS: Gabapentin 300 MG CAP PO SCH (21:10)
[2016-12-24] MEDS: Meropenem 1 GM in Sodium Chloride 0.9% 100 ML IVPB SCH ×2 (03:41→11:59)
[2016-12-24] MEDS: Furosemide 20 MG/2 ML VIAL SLOW IVP SCH ×2 (05:00→14:03)
[2016-12-24] MEDS: Sodium Chloride 0.9% 1,000 ML IV SCH (07:21)
[2016-12-24] MEDS: guaiFENesin ER 600 MG TAB PO SCH ×2 (09:32→20:35)
[2016-12-24] MEDS: Saccharomyces boulardii 250 MG CAP PO SCH (09:32)
[2016-12-24] MEDS: Apixaban 5 MG TAB PO SCH ×2 (09:33→20:33)
[2016-12-24] MEDS: Carvedilol 6.25 MG TAB PO SCH (09:33)
[2016-12-24] MEDS: Lisinopril 5 MG TAB PO SCH (09:34)
[2016-12-24] MEDS: Aspirin 81 mg Enteric Coated Tablet PO SCH (09:34)
[2016-12-24] MEDS: Folic Acid 1 MG TAB PO SCH (09:34)
[2016-12-24] MEDS: Cyanocobalamin (Vitamin B-12) 1,000 MCG TAB PO SCH (09:44)
--- NOTE | 2016-12-24 09:59 | PRG ---
DATE OF SERVICE: 12/24/2016 SUBJECTIVE: Mr. Michael Mejias this morning, awake, alert, responsive, in no distress. OBJECTIVE: VITAL SIGNS: Sats are 98% on room air, temperature 98, blood pressure 100/51. CHEST: Chest reveals decreased breath sounds, no wheezing. CARDIAC: Normal S1, S2. No gallops. ABDOMEN: Soft, no masses. IMPRESSION: 1. Urinary tract infection. 2. Klebsiella. 3. Indwelling Hoyt. 4. Pleural effusion transudate. 5. Congestive heart failure. 6. Pacemaker. PLAN: From a pulmonary standpoint of view, I see no reason to continue vancomycin. Continue suprap ubic catheter. He needs to placed back in [place]. He is a DNR. Pulmonary will follow at a distance. Call if needed.
[2016-12-24 10:19] LABS: Vancomycin, Trough 28.3 ug/mL
[2016-12-24] MEDS: Vancomycin HCl 1 GM in Premix Bag 1 BAG IVPB SCH (11:02)
[2016-12-24] MEDS ORDERED: Vancomycin HCl 750 MG in Sodium Chloride 0.9% 250 ML 250 ML IVPB SCH (11:15)
--- NOTE | 2016-12-24 14:28 | PDOC.PN ---
- Subjective Encounter Start Date: 12/24/16 Encounter Start Time: 14:27 pt still in and out of consiouness. no f/c. spc changed on . puree diet with aspiration risk per speech - Objective Resuscitation Status: Resuscitation Status DNR:Do Not Resuscitate MAR Reviewed: Yes Vital Signs & Weight: Vital Signs (12 hours) Temp Pulse Pulse Pulse Resp BP BP 12/24/16 12:00 98.0 F 60 14 12/24/16 11:18 62 60 105/60 12/24/16 09:34 63 12/24/16 09:33 73/49 L 12/24/16 08:25 98.5 F 63 70 14 101/51 L 12/24/16 08:00 98.5 F 63 14 12/24/16 03:38 98.1 F 77 16 BP BP Pulse Ox 12/24/16 12:00 91/53 L 94 L 12/24/16 11:18 91/53 L 12/24/16 09:34 12/24/16 09:33 12/24/16 08:25 95 12/24/16 08:00 101/51 L 95 12/24/16 03:38 93/50 L 92 L Weight Admit Weight 182 lb 14.4 oz Weight 175 lb 8 oz I&O: 12/23/16 12/24/16 12/25/16 06:59 06:59 06:59 Intake Total 2816 3140 Output Total 1700 3050 Balance 1116 90 Result Diagrams: 12/23/16 03:56 12/23/16 03:56 Phys Exam - Physical Examination HEENT: moist MMs Neck: no JVD Respiratory: no rales Cardiovascular: no significant murmur Gastrointestinal: soft Musculoskeletal: pulses present mumbles Skin: normal turgor Dx/Plan (1) UTI (urinary tract infection) due to urinary indwelling Hoyt catheter Code(s): T83.511A - I/I REACT D/T INDWELLING URETHRAL CATHETER, INIT; N39.0 - URINARY TRACT INFECTION, SITE NOT SPECIFIED Status: Acute (2) Afib Code(s): I48.91 - UNSPECIFIED ATRIAL FIBRILLATION Status: Acute (3) H/O: CVA (cerebrovascular accident) Code(s): Z86.73 - PRSNL HX OF TIA (TIA), AND CEREB INFRC W/O RESID DEFICITS Status: Acute (4) Hypothyroid Code(s): E03.9 - HYPOTHYROIDISM, UNSPECIFIED Status: Acute (5) Encephalopathy Code(s): G93.40 - ENCEPHALOPATHY, UNSPECIFIED Status: Acute (6) Alzheimer's dementia Code(s): G30.9 - ALZHEIMER'S DISEASE, UNSPECIFIED Status: Chronic (7) Chronic atrial fibrillation Code(s): I48.2 - CHRONIC ATRIAL FIBRILLATION Status: Chronic (8) Chronic diastolic (congestive) heart failure Code(s): I50.32 - CHRONIC DIASTOLIC (CONGESTIVE) HEART FAILURE Status: Chronic - Plan * family refused peg tube * palliative care to speak to pt family * repeat urine culture * will stop abx per dr gonzales recommendations * snf placement when ok with family, possible hospice if no improvement in mental state * continue current plan of care * cont PT/OT * nurse at bedside taking care of the patient and helping patient eat breakfast * no family at bedside
[2016-12-24 15:18] LABS: Anion Gap 11 mmol/L (10-20); BUN (Urea Nitrogen) 26 mg/dL (8.4-25.7); Calc. Creatinine Clearance 43 mL/min (70-130); Calcium 8.1 mg/dL (7.8-10.44); Carbon Dioxide 37 mmol/L (23-31); Chloride 97 mmol/L (98-107); Estimated GFR-MDRD 51
[2016-12-24] MEDS: Potassium Chloride 40 MEQ in Sodium Chloride 0.9% 500 ML IVPB SCH ×2 (16:44→22:31)
[2016-12-24] MEDS: Mirtazapine 15 MG TAB PO SCH (20:35)
[2016-12-24] MEDS: Gabapentin 300 MG CAP PO SCH (20:35)
[2016-12-24] MEDS: Atorvastatin Calcium 10 MG TAB PO SCH (20:35)
[2016-12-24] MEDS: Carvedilol 3.125 MG TAB PO SCH (20:37)
[2016-12-25] MEDS: Sodium Chloride 0.9% 1,000 ML IV SCH ×3 (02:41→18:29)
[2016-12-25 04:56] LABS: #Eosinphils 0.3 thou/uL (0.0-0.7); #Lymphocytes 1.1 thou/uL (1.20-3.40); #Monocytes 0.6 thou/uL (0.11-0.59); #Neutrophils 4.4 thou/uL (1.40-6.50); %Basophils 0.4 % (0.0-1.0); %Eosinophils 4.5 % (0.0-10.0); %Lymphocytes 17.4 % (21.0-51.0); %Monocytes 9.7 % (0.0-10.0); Hematocrit 35.1 % (42.0-52.0); Mean Platelet Volume 8.2 fL (7.4-10.4); Red Blood Cell (RBC) Count 3.56 mill/uL (4.70-6.10); White Blood Cell (WBC) Count 6.5 thou/uL (4.8-10.8)
[2016-12-25] MEDS: Aspirin 81 mg Enteric Coated Tablet PO SCH (09:14)
[2016-12-25] MEDS: Cyanocobalamin (Vitamin B-12) 1,000 MCG TAB PO SCH (09:15)
[2016-12-25] MEDS: guaiFENesin ER 600 MG TAB PO SCH ×2 (09:15→20:45)
[2016-12-25] MEDS: Furosemide 20 MG TAB PO SCH (09:15)
[2016-12-25] MEDS: Lisinopril 5 MG TAB PO SCH (09:15)
[2016-12-25] MEDS: Apixaban 5 MG TAB PO SCH ×2 (09:16→20:27)
[2016-12-25] MEDS: Saccharomyces boulardii 250 MG CAP PO SCH (09:16)
[2016-12-25] MEDS: Folic Acid 1 MG TAB PO SCH (09:16)
[2016-12-25] MEDS: Carvedilol 3.125 MG TAB PO SCH ×2 (09:19→20:40)
[2016-12-25 11:44] LABS: BUN (Urea Nitrogen) 23 mg/dL (8.4-25.7); Calc. Creatinine Clearance 44 mL/min (70-130); Calcium 8.3 mg/dL (7.8-10.44); Estimated GFR-MDRD 57
--- NOTE | 2016-12-25 11:57 | PDOC.PN ---
- Subjective Encounter Start Date: 12/25/16 Encounter Start Time: 11:56 pt was alert during morining and was able to eat bf at time of my exam he was more drowsy.. not following simple commands no n/v no f/c no sob - Objective Resuscitation Status: Resuscitation Status DNR:Do Not Resuscitate MAR Reviewed: Yes Vital Signs & Weight: Vital Signs (12 hours) Temp Pulse Resp BP BP Pulse Ox 12/25/16 11:41 96.2 F L 60 18 128/74 97 12/25/16 09:15 64 12/25/16 08:15 96.5 F L 64 14 97 12/25/16 08:00 96.5 F L 64 14 125/70 97 12/25/16 04:00 96.7 F L 60 16 114/71 96 Weight Admit Weight 182 lb 14.4 oz Weight 166 lb I&O: 12/24/16 12/25/16 12/26/16 06:59 06:59 06:59 Intake Total 3140 3000 Output Total 3050 1500 Balance 90 1500 Result Diagrams: 12/25/16 04:02 12/25/16 10:59 Phys Exam - Physical Examination HEENT: PERRLA, moist MMs Neck: no JVD decreased bs at bases Cardiovascular: RRR Gastrointestinal: soft Musculoskeletal: pulses present not following commands at present time, drowsy Skin: normal turgor Dx/Plan (1) UTI (urinary tract infection) due to urinary indwelling Hoyt catheter Code(s): T83.511A - I/I REACT D/T INDWELLING URETHRAL CATHETER, INIT; N39.0 - URINARY TRACT INFECTION, SITE NOT SPECIFIED Status: Resolved Comment: spc changed on Dec no abx recommended per dr hernandez and dr gonzales new ur cul shows some yeast (2) Afib Code(s): I48.91 - UNSPECIFIED ATRIAL FIBRILLATION Status: Acute Comment: pt on eliquis (3) H/O: CVA (cerebrovascular accident) Code(s): Z86.73 - PRSNL HX OF TIA (TIA), AND CEREB INFRC W/O RESID DEFICITS Status: Acute (4) Hypothyroid Code(s): E03.9 - HYPOTHYROIDISM, UNSPECIFIED Status: Acute (5) Encephalopathy Code(s): G93.40 - ENCEPHALOPATHY, UNSPECIFIED Status: Acute Comment: due to worsening dementia (6) Alzheimer's dementia Code(s): G30.9 - ALZHEIMER'S DISEASE, UNSPECIFIED Status: Chronic (7) Chronic atrial fibrillation Code(s): I48.2 - CHRONIC ATRIAL FIBRILLATION Status: Chronic (8) Chronic diastolic (congestive) heart failure Code(s): I50.32 - CHRONIC DIASTOLIC (CONGESTIVE) HEART FAILURE Status: Chronic (9) Protein-calorie malnutrition, moderate Code(s): E44.0 - MODERATE PROTEIN-CALORIE MALNUTRITION Status: Acute Comment : due to poor oral intake family refused peg tube - Plan * will speak to family about prognosis * transfer to snf if ok with family
[2016-12-25 12:01] LABS: ALT (SGPT) 11 U/L (8-55); AST (SGOT) 26 U/L (5-34); Alkaline Phosphatase 79 U/L (40-150); Anion Gap 10 mmol/L (10-20); Bilirubin, Total 0.8 mg/dL (0.2-1.2); Carbon Dioxide 37 mmol/L (23-31); Chloride 100 mmol/L (98-107); Globulin 3.3 g/dL (2.4-3.5); Protein, Total 5.5 g/dL (5.8-8.1)
[2016-12-25] MEDS: Potassium Chloride 40 MEQ, Admixture Fee 1 EACH in Sodium Chloride 0.9% 250 ML 250 ML IVPB SCH ×2 (14:05→20:27)
[2016-12-25] MEDS: Gabapentin 300 MG CAP PO SCH (20:28)
[2016-12-25] MEDS: Mirtazapine 15 MG TAB PO SCH (20:48)
[2016-12-25] MEDS: Atorvastatin Calcium 10 MG TAB PO SCH (20:48)
[2016-12-26 05:37] LABS: Hematocrit 35.2 % (42.0-52.0)
[2016-12-26 05:58] LABS: Anion Gap 10 mmol/L (10-20); BUN (Urea Nitrogen) 27 mg/dL (8.4-25.7); Calc. Creatinine Clearance 46 mL/min (70-130); Calcium 8.4 mg/dL (7.8-10.44); Carbon Dioxide 35 mmol/L (23-31); Chloride 103 mmol/L (98-107); Estimated GFR-MDRD 59; Magnesium 1.6 mg/dL (1.6-2.6)
[2016-12-26] MEDS ORDERED: Fluconazole 100 MG TAB PO SCH (09:00)
[2016-12-26] MEDS: Saccharomyces boulardii 250 MG CAP PO SCH (09:49)
[2016-12-26] MEDS: Cyanocobalamin (Vitamin B-12) 1,000 MCG TAB PO SCH (09:49)
[2016-12-26] MEDS: guaiFENesin ER 600 MG TAB PO SCH (09:49)
[2016-12-26] MEDS: Folic Acid 1 MG TAB PO SCH (09:49)
[2016-12-26] MEDS: Aspirin 81 mg Enteric Coated Tablet PO SCH (09:50)
[2016-12-26] MEDS: Lisinopril 5 MG TAB PO SCH (09:50)
[2016-12-26] MEDS: Furosemide 20 MG TAB PO SCH (09:51)
[2016-12-26] MEDS: Apixaban 5 MG TAB PO SCH (09:51)
[2016-12-26 10:53] LABS: Vancomycin, Random 19.3 ug/mL (See Comment)
[2016-12-26] MEDS: Carvedilol 3.125 MG TAB PO SCH (11:21)
[2016-12-26 11:35] VITALS: BP 108/60; TEMP 97.5
--- NOTE | 2016-12-26 11:41 | PDOC.PN ---
- Subjective Encounter Start Date: 12/26/16 Encounter Start Time: 11:39 Patient seen and examined. No new complaints. No overnight events more alert, ate all his bf - Objective Resuscitation Status: Resuscitation Status DNR:Do Not Resuscitate MAR Reviewed: Yes Vital Signs & Weight: Vital Signs (12 hours) Temp Pulse Resp BP BP Pulse Ox 12/26/16 11:34 97.5 F L 66 18 108/60 93 L 12/26/16 09:50 60 110/63 12/26/16 08:00 97.6 F 66 16 110/63 94 L 12/26/16 03:26 98.3 F 60 20 99/60 96 12/26/16 00:47 97.4 F L 71 20 97/52 L 96 Weight Admit Weight 182 lb 14.4 oz Weight 168 lb 14.4 oz I&O: 12/25/16 12/26/16 12/27/16 06:59 06:59 06:59 Intake Total 3000 4038 480 Output Total 1500 770 Balance 1500 3268 480 Result Diagrams: 12/26/16 04:27 12/26/16 04:27 Phys Exam - Physical Examination Constitutional: NAD HEENT: PERRLA Neck: no JVD Respiratory: no wheezing, no rales Cardiovascular: no significant murmur Gastrointestinal: non-tender spc in place Musculoskeletal: pulses present Neurological: moves all 4 limbs Dx/Plan (1) UTI (urinary tract infection) due to urinary indwelling Hoyt catheter Code(s): T83.511A - I/I REACT D/T INDWELLING URETHRAL CATHETER, INIT; N39.0 - URINARY TRACT INFECTION, SITE NOT SPECIFIED Status: Resolved Comment: spc changed on Dec no abx recommended per dr hernandez and dr gonzales new ur cul shows some yeast (2) Afib Code(s): I48.91 - UNSPECIFIED ATRIAL FIBRILLATION Status: Acute Comment: pt on eliquis (3) H/O: CVA (cerebrovascular accident) Code(s): Z86.73 - PRSNL HX OF TIA (TIA), AND CEREB INFRC W/O RESID DEFICITS Status: Acute (4) Hypothyroid Code(s): E03.9 - HYPOTHYROIDISM, UNSPECIFIED Status: Acute (5) Encephalopathy Code(s): G93.40 - ENCEPHALOPATHY, UNSPECIFIED Status: Resolved Comment: due to worsening dementia (6) Alzheimer's dementia Code(s): G30.9 - ALZHEIMER'S DISEASE, UNSPECIFIED Status: Chronic (7) Chronic atrial fibrillation Code(s): I48.2 - CHRONIC ATRIAL FIBRILLATION Status: Chronic (8) Chronic diastolic (congestive) heart failure Code(s): I50.32 - CHRONIC DIASTOLIC (CONGESTIVE) HEART FAILURE Status: Chronic Comment: ef- 45% (9) Protein-calorie malnutrition, moderate Code(s): E44.0 - MODERATE PROTEIN-CALORIE MALNUTRITION Status: Acute Comment : due to poor oral intake family refused peg tube - Plan * doing better * d/c to [facility]
[2016-12-26] MEDS ORDERED: Potassium Chloride 20 MEQ TAB PO SCH (12:00)
--- NOTE | 2016-12-26 20:25 | DIS ---
DATE OF ADMISSION: 12/15/2016 DATE OF DISCHARGE: 12/26/2016 DISCHARGE DIAGNOSES: 1. Altered mental state secondary to delirium secondary to possible lack of sleep because of chroni c medical conditions and worsening dementia. 2. Chronic atrial fibrillation, on Eliquis and metoprolol, rate controlled. 3. History of cerebrovascular accident in the past. 4. Hypothyroidism, stable. 5. Alzheimer's dementia. 6. Chronic diastolic congestive heart failure, compensated right now, ejection fraction 45%. 7. Moderate protein-calorie malnutrition. 8. Suprapubic catheter with colonization. 9. Right-sided pleural effusion, status post tap on the . DISCHARGE MEDICATIONS: Include; metoprolol 12.5 p.o. b.i.d., lisinopril 2.5 p.o. daily, both of the m to be held for systolic less than 120, Eliquis 2.5 p.o. daily, continuation of from home med ications, Diflucan 100 mg p.o. daily for 3 days, Lasix 20 mg p.o. q.48 hours, gabapentin 100 mg p.o. t.i.d., hold for lethargy, Synthroid 125 p.o. daily, continuation of the Claritin, melatonin, Seth ax, pravastatin and Flomax from home medications and Remeron 7.5 p.o. at bedtime. The patient's moriah dies done this hospital stay were CT scan on the 12/15. Carotid Doppler was done on 12/15, which sh owed no hemodynamically significant stenosis. On 12/16, had an echo, which showed EF of 45%, grade 2/3 diastolic dysfunction. On 12/23, patient had a suprapubic catheter changed by Dr. Mendes. CONSULTANTS ON THE CASE: Dr. Mendes; Neurology; Pulmonary; and Dr. Ramirez. BRIEF HOSPITAL COURSE: This is an 89-year-old pleasant gentleman, who came into the hospital with a ltered mental state. Please refer to the admitting physician's H and P for further details. The pa graciela was admitted. Urine cultures was done from a suprapubic catheter, showed Pseudomonas. The pa graciela was empirically treated with IV antibiotics. Dr. Ramirez was consulted. Blood cultures were ne gative. Dr. Ramirez recommended no antibiotic treatment as he thought it was colonized bacteria. Dr. Lama saw the patient as well and he thought the patient was more confused and delirious because of lack of sleep, because of the chronic medical conditions. The patient was seen by Pulmonary as rehana cheatham. His echocardiogram with ejection fraction of 45% and his BNP was high. The patient also had a right-sided pleural effusion. Medications for his diastolic congestive heart failure were optimize d. He was put on beta-cristel, CLARY and Lasix. He improved with this treatment. Dr. Mosqueda also did a pleurocentesis on the , which gave him symptomatic relief. The hospital course was further co mplicated with all waxing and weaning of his mental state. Speech Therapy evaluated him thoroughly and said that they suggest pureed diet for him with the caveat that he would be high risk for aspira tion in case he is fed when he is a little confused. Patient has no difficulty in swallowing when h e is awake. Our team discussed the patient's prognosis with the family. They did not want him to h ave hospice. Though all the information was given, they [facility] They also refused a PEG tube in this hospital stay. The patient is a DNR out here. The patient did work with physical therapy and occupational therapy, but did not do much. He was bedrid den for most of the time. Right now, all his medical issues have been resolved. His electrolytes h ave been replaced. His delirium is much better. He is eating well as of now and his congestive hea rt failure is resolved. The patient's repeat urine cultures after the SPC was changed did show some urine yeast for which he has been getting a short course of fluconazole. Right now, he is medicall y stable to be discharged back to the custodial with outpatient followup with PCP, Urology, Cardi ology and Neurology. He is asked to come back to the hospital in case symptoms recur. Total time for this discharge took 35 minutes.
[2016-12-26] MEDS ORDERED: Metoprolol Tartrate 25 MG TAB PO SCH (21:00)
[2016-12-27] MEDS ORDERED: Lisinopril 2.5 MG TAB PO SCH (09:00)
== END 2016-12-26 13:10 | DRG 56 ==
LOC: ERS 11:49 → 2SE 17:28
PROVIDERS: ADMIT Internal Medicine; ATTEND Internal Medicine
PROC: 0W993ZX Drainage of Right Pleural Cavity, Percutaneous Approach, Diagnostic (ICD-10-PCS; 2016-12-16)
PROC: 0T2BX0Z Change Drainage Device in Bladder, External Approach (ICD-10-PCS; principal; 2016-12-23)
DX: G30.9 Alzheimer's disease, unspecified (principal); J18.9 Pneumonia, unspecified organism; I50.33 Acute on chronic diastolic (congestive) heart failure; J90 Pleural effusion, not elsewhere classified; E44.0 Moderate protein-calorie malnutrition; F05 Delirium due to known physiological condition; N39.0 Urinary tract infection, site not specified; I11.0 Hypertensive heart disease with heart failure; N13.8 Other obstructive and reflux uropathy; N99.511 Cystostomy infection; I48.2 Chronic atrial fibrillation; F32.9 Major depressive disorder, single episode, unspecified; F02.80 Dementia in other diseases classified elsewhere, unspecified severity, without behavioral disturbance, psychotic disturbance, mood disturbance, and anxiety; D53.9 Nutritional anemia, unspecified; Z95.0 Presence of cardiac pacemaker; Y95 Nosocomial condition; Z79.01 Long term (current) use of anticoagulants; E87.6 Hypokalemia; N40.1 Benign prostatic hyperplasia with lower urinary tract symptoms; F41.9 Anxiety disorder, unspecified; Z66 Do not resuscitate; E03.9 Hypothyroidism, unspecified; R33.8 Other retention of urine; N39.490 Overflow incontinence; B96.1 Klebsiella pneumoniae [K. pneumoniae] as the cause of diseases classified elsewhere; Z86.73 Personal history of transient ischemic attack (TIA), and cerebral infarction without residual deficits; Q54.8 Other hypospadias; Y84.6 Urinary catheterization as the cause of abnormal reaction of the patient, or of later complication, without mention of misadventure at the time of the procedure
CPT/HCPCS: 32554; 36415; 36416; 70450; 71010; 80048; 80053; 80061; 80202; 81003; 81015; 82150; 82553; 82565; 82945; 83615; 83735; 83880; 84157; 84478; 84484; 84550; 85014; 85018; 85025; 85049; 85060; 85610; 85730; 87040; 87070; 87077; 87086; 87116; 87186; 87205; 87206; 88112; 88305; 89051; 93005; 93306; 93880; 96365; 96368; 96375; A4216; G8978-GP-CM; G8979-GP-CL; G8981-GP-CN; G8982-GP-CN; G8983-GP-CN; G8987-GO-CL; G8987-GO-CN; G8988-GO-CJ; G8988-GO-CN; G8989-GO-CN; G8996-GN-CI; G8996-GN-CL; G8996-GN-CM; G8996-GN-CN; G8997-GN-CI; G8997-GN-CJ; G8997-GN-CK; G8997-GN-CM; J0360; J0692; J1630; J1642; J1940; J1956; J2185; J3370; J3480; J3486; J7050